=== PATIENT | male | born 1950 | race Two or more races ===

== ENCOUNTER 2019-02-26 23:04 | Emergency (ER) | payer OTHER ==
[~2019-02-26] VITALS: Ht 172.7 cm; Wt 96.2 kg
[2019-02-27 03:01] LABS: Basophils # (auto) 0 uL; Basophils % (auto) 0.1 % (0.0-2.0); Eosinophils # (auto) 0 uL; Hematocrit 44.4 % (41.0-53.0); Hemoglobin 15.6 g/dL (13.5-17.5); Lymphocytes # (auto) 1.1 uL; Mean Corpuscular Hemoglobin 30.1 pg (28.0-32.0); Mean Corpuscular Hgb Conc. 35.2 g/dL (32.0-36.0); Mean Corpuscular Volume 85.6 fL (80.0-100.0); Monocytes # (auto) 1.8 uL; Monocytes % (auto) 9.4 % (0.0-12.0); Neutrophils # (auto) 16.1 uL; Neutrophils % (auto) 84.5 % (37.0-80.0); Nucleated Red Blood Cells % 0.1 %; Platelet Count (auto) 217 10^3/uL (140-450); Red Blood Cells 5.19 10^6/uL (4.5-5.90); Red Cell Distribution Width 15.2 % (11.8-14.3)
[2019-02-27 03:02] LABS: Albumin 3.8 g/dL (3.4-5.0); BUN/Creatinine Ratio 21.4; Bilirubin, Total 4.6 mg/dL (0.2-1.0); Calcium 8.6 mg/dL (8.5-10.1); Potassium 4.1 mmol/L (3.5-5.1); Total Protein 7.4 g/dL (6.4-8.2)
[2019-02-27] MEDS ORDERED: PIPERACILLIN-TAZOB 3.375GM 100 ML IV ONE (03:30)
[2019-02-27] MEDS ORDERED: SODIUM CHLORIDE 0.9% 1,000 ML IV ONE (03:30)
[2019-02-27] MEDS ORDERED: IOHEXOL 350 MG/ML 100ML IJ ONE (03:39)
[2019-02-27 04:40] LABS: Urine Bacteria FEW /hpf (None Seen); Urine Blood 2+ /uL (Negative); Urine Hyaline Cast FEW /lpf (0 - 2); Urine Mucus FEW (None Seen); Urine Specific Gravity 1.029 (1.001-1.035); Urine WBC 2 /hpf (0 - 3)
[2019-02-27] MEDS ORDERED: LACTATED RINGER'S 1,000 ML IV ONE ×2 (07:00)
[2019-02-27 07:29] LABS: Lactic Acid w/Reflex 3.8 mmol/L (0.4-2.0)
[2019-02-27 08:19] VITALS: BP 141/82
== END 2019-02-27 08:37 | disposition short-term general hospital (02) ==
LOC: EEVIPCON 23:06 → ER 23:06
DX: K85.90 Acute pancreatitis without necrosis or infection, unspecified (principal); R94.5 Abnormal results of liver function studies; E86.0 Dehydration; K59.00 Constipation, unspecified; I10 Essential (primary) hypertension
CPT/HCPCS: 36415; 71260; 74022; 74177; 80053; 81001; 83605; 85025; 93005; 96365; 96366; 99285; J2543; J7120; Q9967; 96361

== ENCOUNTER 2019-03-27 15:09 | Emergency (ER) | payer OTHER ==
[~2019-03-27] VITALS: Ht 172.7 cm; Wt 97.5 kg
[2019-03-27 17:45] LABS: Albumin 2.1 g/dL (3.4-5.0); BUN/Creatinine Ratio 14.9; Calcium 7.8 mg/dL (8.5-10.1); Potassium 4.1 mmol/L (3.5-5.1)
[2019-03-27] MEDS ORDERED: SODIUM CHLORIDE 0.9% 1,000 ML IVB ONE (17:47)
[2019-03-27 17:48] LABS: Bilirubin, Total 1.6 mg/dL (0.2-1.0); Total Protein 6.5 g/dL (6.4-8.2)
[2019-03-27 17:54] LABS: Basophils # (auto) 0 uL; Eosinophils # (auto) 0 uL; Hematocrit 30.3 % (41.0-53.0); Hemoglobin 10.5 g/dL (13.5-17.5); Lymphocytes # (auto) 0.5 uL; Lymphocytes % (auto) 3.4 % (10.0-50.0); Mean Corpuscular Hemoglobin 28.9 pg (28.0-32.0); Mean Corpuscular Hgb Conc. 34.8 g/dL (32.0-36.0); Monocytes # (auto) 0.3 uL; Monocytes % (auto) 1.7 % (0.0-12.0); Neutrophils # (auto) 15.2 uL; Neutrophils % (auto) 94.9 % (37.0-80.0); Platelet Count (auto) 333 10^3/uL (140-450); Red Blood Cells 3.65 10^6/uL (4.5-5.90); Red Cell Distribution Width 15.7 % (11.8-14.3)
[2019-03-27 18:46] LABS: Lipase 1066 U/L (73-393)
[2019-03-27] MEDS ORDERED: SODIUM CHLORIDE 0.9% 1,000 ML IV ONE ×2 (19:00→22:30)
[2019-03-27] MEDS ORDERED: ONDANSETRON HCL 4 MG/2 ML VIAL IV ONE (19:00)
[2019-03-27] MEDS ORDERED: MORPHINE SULF INJ 2 MG/ML SYRINGE 1ML IV ONE (19:00)
[2019-03-27 19:06] LABS: Amylase 664 U/L (25-115)
[2019-03-27] MEDS ORDERED: cefTRIAXone 1GM/50ML D5W 50 ML IV ONE (20:15)
[2019-03-27 22:23] VITALS: BP 84/53
[2019-04-22] MEDS ORDERED: TAMS0.4C36 PO (23:17)
[2019-04-22] MEDS ORDERED: ENO40SY SUBCUT (23:17)
[2019-04-22] MEDS ORDERED: METR500T14 PO (23:17)
[2019-04-22] MEDS ORDERED: FURO20TA3 PO (23:17)
== END 2019-03-27 22:40 | disposition short-term general hospital (02) ==
LOC: EDUNIT# 15:09 → EDBD 15:09 → ER 15:12 → EEVIPCON 15:12 → ER 22:40
DX: K85.92 Acute pancreatitis with infected necrosis, unspecified (principal); K80.20 Calculus of gallbladder without cholecystitis without obstruction; K86.89 Other specified diseases of pancreas; I10 Essential (primary) hypertension; K21.9 Gastro-esophageal reflux disease without esophagitis
CPT/HCPCS: 36415; 71045; 74176; 80053; 82150; 83690; 83735; 85025; 94761; 96365; 96375; 99291; J0696; J2270; J2405; J7030

== ENCOUNTER 2019-05-21 11:38 | Inpatient (IN) | payer OTHER ==
[~2019-05-21] VITALS: Ht 172.7 cm; Wt 94.7 kg
[~2019-05-21 11:38] MED LIST: FURO20TA3 PO; TAMS0.4C36 PO
[2019-05-21 12:46] LABS: Basophils # (auto) 0 uL; Basophils % (auto) 0.6 % (0.0-2.0); Eosinophils # (auto) 0 uL; Eosinophils % (auto) 0.7 % (0.0-7.0); Hemoglobin 7.7 g/dL (13.5-17.5); Nucleated Red Blood Cells % 0.1 %
[2019-05-21 12:47] LABS: Hematocrit 23.8 % (41.0-53.0); Lymphocytes % (auto) 15.6 % (10.0-50.0); Mean Corpuscular Hemoglobin 27.4 pg (28.0-32.0); Mean Corpuscular Hgb Conc. 32.5 g/dL (32.0-36.0); Mean Corpuscular Volume 84.3 fL (80.0-100.0); Monocytes # (auto) 0.7 uL; Monocytes % (auto) 9.9 % (0.0-12.0); Neutrophils # (auto) 4.8 uL; Neutrophils % (auto) 73.2 % (37.0-80.0); Platelet Count (auto) 222 10^3/uL (140-450); Red Blood Cells 2.82 10^6/uL (4.5-5.90); White Blood Cell 6.6 10^3/uL (4.4-10.8)
[2019-05-21 13:00] LABS: Albumin 1.6 g/dL (3.4-5.0); Anion Gap 7 (5-15); Blood Urea Nitrogen 11 mg/dL (7-18); Calcium 7.2 mg/dL (8.5-10.1); Carbon Dioxide 27 mmol/L (21-32); Chloride 105 mmol/L (98-107); Glucose 106 mg/dL (74-106); Magnesium 1.8 mg/dL (1.6-2.6); Potassium 3.8 mmol/L (3.5-5.1); Sodium 139 mmol/L (136-145)
[2019-05-21 13:07] LABS: Alanine Aminotransferase 11 U/L (16-61); Alkaline Phosphatase 81 U/L (45-117); Aspartate Aminotransferase 26 U/L (15-37); Bilirubin, Total 0.9 mg/dL (0.2-1.0); GFR African American 213 mL/min; GFR Non-African American 176 mL/min
[2019-05-21] MEDS ORDERED: FUROSEMIDE 40 MG/4 ML VIAL IV ONE (14:00)
[2019-05-21 14:03] LABS: Urine WBC None Seen /hpf (0 - 3)
[2019-05-21 14:33] LABS: Urine Amorphous Crystal FEW /hpf (None Seen); Urine Bacteria NONE SEEN /hpf (None Seen); Urine Blood Negative /uL (Negative); Urine Mucus MODERATE (None Seen); Urine Specific Gravity 1.025 (1.001-1.035)
[2019-05-21] MEDS ORDERED: NITROGLYCERIN 0.4 MG SL TAB SL PRN (15:00)
[2019-05-21] MEDS ORDERED: MORPHINE SULF INJ 2 MG/ML SYRINGE 1ML IV PRN (15:00)
[2019-05-21] MEDS: ENOXAPARIN SOD 40 MG/0.4 ML SYRINGE SC SCH (15:57)
[2019-05-21] MEDS: SOD CHL 0.45% 1,000 ML IV SCH (15:57)
[2019-05-21] MEDS: PANTOPRAZOLE 40 MG TAB PO SCH (15:57)
[2019-05-21 18:00] VITALS: BP 138/76
[2019-05-21] MEDS: TAMSULOSIN HYDROCHLORIDE 0.4 MG CAP PO SCH (18:00)
[2019-05-21] MEDS ORDERED: HYDROcodone-ACET 10/325MG TAB PO PRN (18:00)
[2019-05-21 22:00] VITALS: BP 145/78
[2019-05-22] MEDS: SOD CHL 0.45% 1,000 ML IV SCH ×3 (01:49→11:00)
[2019-05-22 06:24] VITALS: BP 135/89
[2019-05-22 09:00] VITALS: BP 119/71
[2019-05-22] MEDS ORDERED: FUROSEMIDE 20 MG TAB PO SCH (10:00)
[2019-05-22] MEDS: ENOXAPARIN SOD 40 MG/0.4 ML SYRINGE SC SCH (10:17)
[2019-05-22] MEDS ORDERED: POTASSIUM CHL 20 Meq TABLET PO ONE (12:00)
[2019-05-22] MEDS ORDERED: FUROSEMIDE 20 MG/2 ML VIAL IV ONE (12:00)
[2019-05-22] MEDS: PANTOPRAZOLE 40 MG TAB PO SCH (12:36)
[2019-05-22 13:00] VITALS: BP 140/82
[2019-05-22 17:00] VITALS: BP 134/84
[2019-05-22] MEDS: TAMSULOSIN HYDROCHLORIDE 0.4 MG CAP PO SCH (18:24)
[2019-05-22] MEDS: FUROSEMIDE 40 MG TAB PO SCH (18:25)
[2019-05-22] MEDS: POTASSIUM CHL 20 Meq TABLET PO SCH (20:38)
[2019-05-22 21:50] VITALS: BP 124/78
[2019-05-23 05:24] VITALS: BP 130/75
[2019-05-23] MEDS: FUROSEMIDE 40 MG TAB PO SCH ×2 (06:20→18:40)
[2019-05-23 09:00] VITALS: BP 125/74
[2019-05-23 09:14] LABS: BUN/Creatinine Ratio 12.8; Calcium 7.3 mg/dL (8.5-10.1); Potassium 3.1 mmol/L (3.5-5.1)
[2019-05-23] MEDS: PANTOPRAZOLE 40 MG TAB PO SCH (11:12)
[2019-05-23] MEDS: POTASSIUM CHL 20 Meq TABLET PO SCH ×2 (11:12→21:27)
[2019-05-23] MEDS: ENOXAPARIN SOD 40 MG/0.4 ML SYRINGE SC SCH (11:13)
[2019-05-23 13:00] VITALS: BP 132/78
[2019-05-23 17:00] VITALS: BP 120/69
[2019-05-23] MEDS: TAMSULOSIN HYDROCHLORIDE 0.4 MG CAP PO SCH (18:40)
[2019-05-23 22:00] VITALS: BP 126/78
[2019-05-24 05:00] VITALS: BP 126/72
[2019-05-24] MEDS: FUROSEMIDE 40 MG TAB PO SCH ×2 (06:03→17:39)
[2019-05-24 09:00] VITALS: BP 115/70
[2019-05-24] MEDS: ENOXAPARIN SOD 40 MG/0.4 ML SYRINGE SC SCH (09:58)
[2019-05-24] MEDS: POTASSIUM CHL 20 Meq TABLET PO SCH ×2 (09:58→21:23)
[2019-05-24] MEDS: PANTOPRAZOLE 40 MG TAB PO SCH (09:58)
[2019-05-24 13:00] VITALS: BP 123/68
[2019-05-24] MEDS ORDERED: POTASSIUM CHL 20 Meq TABLET PO ONE (14:00)
[2019-05-24 17:37] VITALS: BP 128/75
[2019-05-24] MEDS: TAMSULOSIN HYDROCHLORIDE 0.4 MG CAP PO SCH (17:41)
[2019-05-24 21:12] VITALS: BP 125/72
[2019-05-25 05:17] VITALS: BP 110/71
[2019-05-25] MEDS: FUROSEMIDE 40 MG TAB PO SCH ×3 (06:30→21:33)
[2019-05-25 06:43] LABS: Chloride 77 mmol/L (98-107); Potassium 3.9 mmol/L (3.5-5.1); Sodium 147 mmol/L (136-145)
[2019-05-25 06:47] LABS: Anion Gap 52 (5-15); BUN/Creatinine Ratio 12.1; Blood Urea Nitrogen 4 mg/dL (7-18); Calcium 6.1 mg/dL (8.5-10.1); Carbon Dioxide 18 mmol/L (21-32); GFR African American 345 mL/min; GFR Non-African American 285 mL/min; Glucose 82 mg/dL (74-106)
[2019-05-25 08:47] VITALS: BP 129/72
[2019-05-25] MEDS: POTASSIUM CHL 20 Meq TABLET PO SCH ×3 (10:21→21:32)
[2019-05-25] MEDS: PANTOPRAZOLE 40 MG TAB PO SCH (10:22)
[2019-05-25] MEDS: ENOXAPARIN SOD 40 MG/0.4 ML SYRINGE SC SCH (10:22)
[2019-05-25 13:10] VITALS: BP 123/67
[2019-05-25 17:05] VITALS: BP 118/74
[2019-05-25] MEDS: TAMSULOSIN HYDROCHLORIDE 0.4 MG CAP PO SCH (18:00)
[2019-05-25 21:59] VITALS: BP 115/73
[2019-05-26 04:30] VITALS: BP 124/74
[2019-05-26] MEDS: POTASSIUM CHL 20 Meq TABLET PO SCH ×3 (06:28→22:11)
[2019-05-26] MEDS: FUROSEMIDE 40 MG TAB PO SCH ×3 (06:29→22:11)
[2019-05-26 07:33] LABS: BUN/Creatinine Ratio 11.3; Calcium 7.7 mg/dL (8.5-10.1); Potassium 3.6 mmol/L (3.5-5.1)
[2019-05-26] MEDS: ENOXAPARIN SOD 40 MG/0.4 ML SYRINGE SC SCH (09:15)
[2019-05-26] MEDS: PANTOPRAZOLE 40 MG TAB PO SCH (09:15)
[2019-05-26 13:00] VITALS: BP 130/75
[2019-05-26 16:52] VITALS: BP 158/85
[2019-05-26] MEDS: TAMSULOSIN HYDROCHLORIDE 0.4 MG CAP PO SCH (18:29)
[2019-05-26 22:00] VITALS: BP 121/68
[2019-05-27 05:53] VITALS: BP 114/64
[2019-05-27] MEDS: FUROSEMIDE 40 MG TAB PO SCH ×3 (06:03→21:51)
[2019-05-27] MEDS: POTASSIUM CHL 20 Meq TABLET PO SCH ×3 (06:03→21:51)
[2019-05-27 09:00] VITALS: BP 123/66
[2019-05-27] MEDS: PANTOPRAZOLE 40 MG TAB PO SCH (09:51)
[2019-05-27] MEDS: ENOXAPARIN SOD 40 MG/0.4 ML SYRINGE SC SCH (09:51)
[2019-05-27 13:00] VITALS: BP 112/74
[2019-05-27 17:00] VITALS: BP 102/59
[2019-05-27] MEDS: TAMSULOSIN HYDROCHLORIDE 0.4 MG CAP PO SCH (18:21)
[2019-05-27 22:00] VITALS: BP 104/69
[2019-05-28 05:00] VITALS: BP 107/68
[2019-05-28] MEDS: POTASSIUM CHL 20 Meq TABLET PO SCH ×3 (06:10→21:39)
[2019-05-28] MEDS: FUROSEMIDE 40 MG TAB PO SCH ×3 (06:11→21:40)
[2019-05-28 09:00] VITALS: BP 159/76
[2019-05-28] MEDS: PANTOPRAZOLE 40 MG TAB PO SCH (10:56)
[2019-05-28] MEDS: ENOXAPARIN SOD 40 MG/0.4 ML SYRINGE SC SCH (10:56)
[2019-05-28 13:00] VITALS: BP 126/77
[2019-05-28] MEDS: TAMSULOSIN HYDROCHLORIDE 0.4 MG CAP PO SCH (18:00)
[2019-05-28 18:32] VITALS: BP 117/71
[2019-05-28 21:00] VITALS: BP 107/68
[2019-05-29 05:00] VITALS: BP 123/69
[2019-05-29] MEDS: FUROSEMIDE 40 MG TAB PO SCH ×3 (05:10→22:22)
[2019-05-29] MEDS: POTASSIUM CHL 20 Meq TABLET PO SCH ×3 (05:10→22:22)
[2019-05-29 09:00] VITALS: BP 123/70
[2019-05-29] MEDS: ENOXAPARIN SOD 40 MG/0.4 ML SYRINGE SC SCH (09:40)
[2019-05-29] MEDS: PANTOPRAZOLE 40 MG TAB PO SCH (09:41)
[2019-05-29 13:00] VITALS: BP 119/70
[2019-05-29 17:21] VITALS: BP 120/68
[2019-05-29] MEDS: TAMSULOSIN HYDROCHLORIDE 0.4 MG CAP PO SCH (17:35)
[2019-05-29 22:00] VITALS: BP 112/64
[2019-05-30 05:18] VITALS: BP 116/66
[2019-05-30] MEDS: POTASSIUM CHL 20 Meq TABLET PO SCH ×3 (05:45→22:40)
[2019-05-30] MEDS: FUROSEMIDE 40 MG TAB PO SCH ×3 (05:46→22:40)
[2019-05-30 09:00] VITALS: BP 138/82
[2019-05-30] MEDS: PANTOPRAZOLE 40 MG TAB PO SCH (09:33)
[2019-05-30] MEDS: ENOXAPARIN SOD 40 MG/0.4 ML SYRINGE SC SCH (09:34)
[2019-05-30 13:00] VITALS: BP 122/72
[2019-05-30 17:00] VITALS: BP 123/70
[2019-05-30] MEDS: TAMSULOSIN HYDROCHLORIDE 0.4 MG CAP PO SCH (18:05)
[2019-05-30 20:00] VITALS: BP 122/72
[2019-05-30 22:22] VITALS: BP 113/71
[2019-05-31 05:14] VITALS: BP 110/69
[2019-05-31] MEDS: POTASSIUM CHL 20 Meq TABLET PO SCH ×3 (05:39→22:11)
[2019-05-31] MEDS: FUROSEMIDE 40 MG TAB PO SCH ×3 (05:39→22:11)
[2019-05-31 09:00] VITALS: BP 120/71
[2019-05-31] MEDS: PANTOPRAZOLE 40 MG TAB PO SCH (09:20)
[2019-05-31] MEDS: ENOXAPARIN SOD 40 MG/0.4 ML SYRINGE SC SCH (09:20)
[2019-05-31 13:00] VITALS: BP 118/70
[2019-05-31 17:00] VITALS: BP 123/69
[2019-05-31 20:00] VITALS: BP 120/71
[2019-05-31] MEDS: TAMSULOSIN HYDROCHLORIDE 0.4 MG CAP PO SCH (20:37)
[2019-05-31 23:10] VITALS: BP 115/69
[2019-06-01 05:08] VITALS: BP 117/68
[2019-06-01] MEDS: POTASSIUM CHL 20 Meq TABLET PO SCH ×3 (05:34→22:23)
[2019-06-01] MEDS: FUROSEMIDE 40 MG TAB PO SCH ×3 (05:35→22:24)
[2019-06-01 05:56] LABS: Basophils # (auto) 0 uL; Basophils % (auto) 0.6 % (0.0-2.0); Eosinophils # (auto) 0.1 uL; Eosinophils % (auto) 2.9 % (0.0-7.0); Hematocrit 26.8 % (41.0-53.0); Hemoglobin 8.7 g/dL (13.5-17.5); Lymphocytes # (auto) 0.9 uL; Lymphocytes % (auto) 20.6 % (10.0-50.0); Mean Corpuscular Hemoglobin 27.5 pg (28.0-32.0); Mean Corpuscular Hgb Conc. 32.5 g/dL (32.0-36.0); Mean Corpuscular Volume 84.6 fL (80.0-100.0); Monocytes # (auto) 0.5 uL; Monocytes % (auto) 11.2 % (0.0-12.0); Neutrophils # (auto) 2.8 uL; Neutrophils % (auto) 64.7 % (37.0-80.0); Platelet Count (auto) 248 10^3/uL (140-450); Red Blood Cells 3.17 10^6/uL (4.5-5.90); Red Cell Distribution Width 19.9 % (11.8-14.3); White Blood Cell 4.4 10^3/uL (4.4-10.8)
[2019-06-01 06:20] LABS: Potassium 3.1 mmol/L (3.5-5.1)
[2019-06-01 06:27] LABS: BUN/Creatinine Ratio 14.5; Total Protein 7.4 g/dL (6.4-8.2)
[2019-06-01 09:00] VITALS: BP 114/71
[2019-06-01] MEDS: PANTOPRAZOLE 40 MG TAB PO SCH (09:02)
[2019-06-01] MEDS: ENOXAPARIN SOD 40 MG/0.4 ML SYRINGE SC SCH (09:05)
[2019-06-01] MEDS ORDERED: POTASSIUM CHL 20 Meq TABLET PO ONE (11:45)
[2019-06-01 13:00] VITALS: BP 122/71
[2019-06-01 17:00] VITALS: BP 123/71
[2019-06-01] MEDS: TAMSULOSIN HYDROCHLORIDE 0.4 MG CAP PO SCH (17:52)
[2019-06-01 22:00] VITALS: BP 113/62
[2019-06-02 06:00] VITALS: BP 118/70
[2019-06-02] MEDS: POTASSIUM CHL 20 Meq TABLET PO SCH ×3 (06:15→22:00)
[2019-06-02] MEDS: FUROSEMIDE 40 MG TAB PO SCH ×3 (06:15→22:00)
[2019-06-02 09:00] VITALS: BP 113/67
[2019-06-02] MEDS ORDERED: POTASSIUM CHL 20 Meq TABLET PO ONE (09:15)
[2019-06-02] MEDS: PANTOPRAZOLE 40 MG TAB PO SCH (09:47)
[2019-06-02] MEDS: ENOXAPARIN SOD 40 MG/0.4 ML SYRINGE SC SCH (09:48)
[2019-06-02 12:05] LABS: BUN/Creatinine Ratio 13.9; Calcium 7.8 mg/dL (8.5-10.1); Potassium 3.4 mmol/L (3.5-5.1)
[2019-06-02 13:00] VITALS: BP 125/74
[2019-06-02 17:00] VITALS: BP 110/70
[2019-06-02] MEDS: TAMSULOSIN HYDROCHLORIDE 0.4 MG CAP PO SCH (18:00)
[2019-06-02 22:00] VITALS: BP 120/76
[2019-06-03 05:47] VITALS: BP 101/65
[2019-06-03] MEDS: FUROSEMIDE 40 MG TAB PO SCH ×3 (06:32→22:04)
[2019-06-03] MEDS: POTASSIUM CHL 20 Meq TABLET PO SCH ×3 (06:32→22:04)
[2019-06-03 09:00] VITALS: BP 115/70
[2019-06-03] MEDS: ENOXAPARIN SOD 40 MG/0.4 ML SYRINGE SC SCH (09:54)
[2019-06-03] MEDS: PANTOPRAZOLE 40 MG TAB PO SCH (09:54)
[2019-06-03 13:00] VITALS: BP 105/70
[2019-06-03 17:00] VITALS: BP 115/64
[2019-06-03] MEDS: TAMSULOSIN HYDROCHLORIDE 0.4 MG CAP PO SCH ×2 (18:00→18:37)
[2019-06-03 22:00] VITALS: BP 115/72
[2019-06-04 05:00] VITALS: BP 114/69
[2019-06-04] MEDS: POTASSIUM CHL 20 Meq TABLET PO SCH ×3 (05:48→21:56)
[2019-06-04] MEDS: FUROSEMIDE 40 MG TAB PO SCH ×3 (05:48→21:56)
[2019-06-04 09:00] VITALS: BP 137/79
[2019-06-04] MEDS: PANTOPRAZOLE 40 MG TAB PO SCH (11:01)
[2019-06-04 13:00] VITALS: BP 135/76
[2019-06-04 17:00] VITALS: BP 107/63
[2019-06-04] MEDS: TAMSULOSIN HYDROCHLORIDE 0.4 MG CAP PO SCH (18:00)
[2019-06-04 21:37] VITALS: BP 106/59
[2019-06-05 05:08] VITALS: BP 111/62
[2019-06-05] MEDS: POTASSIUM CHL 20 Meq TABLET PO SCH ×3 (05:46→21:43)
[2019-06-05] MEDS: FUROSEMIDE 40 MG TAB PO SCH ×3 (05:46→21:44)
[2019-06-05 09:00] VITALS: BP 107/62
[2019-06-05] MEDS: PANTOPRAZOLE 40 MG TAB PO SCH (09:46)
[2019-06-05 13:00] VITALS: BP 108/62
[2019-06-05 17:00] VITALS: BP 114/60
[2019-06-05] MEDS: TAMSULOSIN HYDROCHLORIDE 0.4 MG CAP PO SCH (18:00)
[2019-06-05 20:00] VITALS: BP 125/71
[2019-06-05 21:38] VITALS: BP 125/71
[2019-06-06 05:28] VITALS: BP 108/67
[2019-06-06] MEDS: FUROSEMIDE 40 MG TAB PO SCH ×3 (05:39→21:29)
[2019-06-06] MEDS: POTASSIUM CHL 20 Meq TABLET PO SCH ×3 (05:39→21:28)
[2019-06-06 09:00] VITALS: BP 118/71
[2019-06-06] MEDS: PANTOPRAZOLE 40 MG TAB PO SCH ×2 (09:35→21:29)
[2019-06-06 13:00] VITALS: BP 137/83
[2019-06-06 17:00] VITALS: BP 113/62
[2019-06-06] MEDS: TAMSULOSIN HYDROCHLORIDE 0.4 MG CAP PO SCH (18:00)
[2019-06-06] MEDS: HYDROcodone-ACET 10/325MG TAB PO PRN (20:14)
[2019-06-06 21:57] VITALS: BP 125/65
[2019-06-07 05:26] VITALS: BP 100/58
[2019-06-07] MEDS: FUROSEMIDE 40 MG TAB PO SCH ×3 (05:51→21:41)
[2019-06-07] MEDS: POTASSIUM CHL 20 Meq TABLET PO SCH ×3 (05:51→21:41)
[2019-06-07 09:00] VITALS: BP 102/61
[2019-06-07] MEDS: PANTOPRAZOLE 40 MG TAB PO SCH ×2 (09:40→21:41)
[2019-06-07 13:00] VITALS: BP 122/68
[2019-06-07 17:00] VITALS: BP 123/58
[2019-06-07] MEDS: TAMSULOSIN HYDROCHLORIDE 0.4 MG CAP PO SCH (17:58)
[2019-06-07] MEDS: HYDROcodone-ACET 10/325MG TAB PO PRN ×2 (17:58→22:08)
[2019-06-07] MEDS: ONDANSETRON HCL 4 MG/2 ML VIAL IV PRN (18:45)
[2019-06-07 22:00] VITALS: BP 111/62
[2019-06-08 05:00] VITALS: BP 115/59
[2019-06-08] MEDS: POTASSIUM CHL 20 Meq TABLET PO SCH ×3 (05:33→21:42)
[2019-06-08] MEDS: FUROSEMIDE 40 MG TAB PO SCH ×3 (05:37→21:42)
[2019-06-08 09:00] VITALS: BP 124/66
[2019-06-08] MEDS: PANTOPRAZOLE 40 MG TAB PO SCH ×2 (11:03→21:42)
[2019-06-08 13:00] VITALS: BP 113/59
[2019-06-08 16:51] VITALS: BP 116/60
[2019-06-08] MEDS: TAMSULOSIN HYDROCHLORIDE 0.4 MG CAP PO SCH (18:32)
[2019-06-08 21:26] VITALS: BP 110/63
[2019-06-09 04:59] VITALS: BP 104/64
[2019-06-09] MEDS: POTASSIUM CHL 20 Meq TABLET PO SCH ×3 (06:30→22:30)
[2019-06-09] MEDS: FUROSEMIDE 40 MG TAB PO SCH ×3 (06:30→22:30)
[2019-06-09 09:00] VITALS: BP 104/61
[2019-06-09] MEDS: PANTOPRAZOLE 40 MG TAB PO SCH ×2 (10:00→22:30)
[2019-06-09 13:00] VITALS: BP 101/69
[2019-06-09 17:15] VITALS: BP 107/66
[2019-06-09] MEDS: TAMSULOSIN HYDROCHLORIDE 0.4 MG CAP PO SCH (18:00)
[2019-06-09 22:23] VITALS: BP 103/59
[2019-06-10 05:12] VITALS: BP 113/57
[2019-06-10] MEDS: FUROSEMIDE 40 MG TAB PO SCH ×3 (06:00→21:40)
[2019-06-10] MEDS: POTASSIUM CHL 20 Meq TABLET PO SCH ×3 (06:30→21:39)
[2019-06-10 06:37] LABS: Basophils # (auto) 0 uL; Basophils % (auto) 0.4 % (0.0-2.0); Eosinophils # (auto) 0 uL; Eosinophils % (auto) 0.7 % (0.0-7.0); Hematocrit 25.7 % (41.0-53.0); Hemoglobin 8.5 g/dL (13.5-17.5); Lymphocytes # (auto) 0.9 uL; Lymphocytes % (auto) 14.5 % (10.0-50.0); Mean Corpuscular Hemoglobin 27.7 pg (28.0-32.0); Mean Corpuscular Hgb Conc. 32.9 g/dL (32.0-36.0); Monocytes # (auto) 0.7 uL; Monocytes % (auto) 11.2 % (0.0-12.0); Neutrophils # (auto) 4.7 uL; Neutrophils % (auto) 73.2 % (37.0-80.0); Platelet Count (auto) 277 10^3/uL (140-450); Red Blood Cells 3.06 10^6/uL (4.5-5.90); Red Cell Distribution Width 19.2 % (11.8-14.3); White Blood Cell 6.4 10^3/uL (4.4-10.8)
[2019-06-10 06:53] LABS: Calcium 8.6 mg/dL (8.5-10.1); Potassium 3.5 mmol/L (3.5-5.1)
[2019-06-10 06:58] LABS: BUN/Creatinine Ratio 21.3; Bilirubin, Total 1.6 mg/dL (0.2-1.0); Total Protein 7.7 g/dL (6.4-8.2)
[2019-06-10 09:00] VITALS: BP 102/67
[2019-06-10] MEDS: PANTOPRAZOLE 40 MG TAB PO SCH ×2 (10:42→21:40)
[2019-06-10] MEDS: ENOXAPARIN SOD 40 MG/0.4 ML SYRINGE SC SCH (10:42)
[2019-06-10 13:00] VITALS: BP 101/64
[2019-06-10 16:57] VITALS: BP 123/67
[2019-06-10] MEDS: TAMSULOSIN HYDROCHLORIDE 0.4 MG CAP PO SCH (17:50)
[2019-06-10] MEDS: HYDROcodone-ACET 10/325MG TAB PO PRN (20:16)
[2019-06-10 22:09] VITALS: BP 121/67
[2019-06-10] MEDS: ONDANSETRON HCL 4 MG/2 ML VIAL IV PRN (22:26)
[2019-06-11 05:06] VITALS: BP 101/56
[2019-06-11] MEDS: POTASSIUM CHL 20 Meq TABLET PO SCH ×3 (05:44→21:48)
[2019-06-11] MEDS: FUROSEMIDE 40 MG TAB PO SCH ×3 (05:44→21:48)
[2019-06-11] MEDS: ENOXAPARIN SOD 40 MG/0.4 ML SYRINGE SC SCH (10:24)
[2019-06-11] MEDS: PANTOPRAZOLE 40 MG TAB PO SCH ×2 (10:24→21:48)
[2019-06-11 13:00] VITALS: BP 103/59
[2019-06-11] MEDS ORDERED: ACETAMINOPHEN 325 MG TAB PO PRN (14:30)
[2019-06-11 17:00] VITALS: BP 100/58
[2019-06-11 22:00] VITALS: BP 94/54
[2019-06-12 05:18] VITALS: BP 110/58
[2019-06-12] MEDS: POTASSIUM CHL 20 Meq TABLET PO SCH ×3 (06:16→21:45)
[2019-06-12] MEDS: FUROSEMIDE 40 MG TAB PO SCH ×3 (06:17→21:46)
[2019-06-12 09:00] VITALS: BP 102/59
[2019-06-12] MEDS: PANTOPRAZOLE 40 MG TAB PO SCH ×2 (11:04→21:46)
[2019-06-12] MEDS: ENOXAPARIN SOD 40 MG/0.4 ML SYRINGE SC SCH (11:05)
[2019-06-12] MEDS: TAMSULOSIN HYDROCHLORIDE 0.4 MG CAP PO SCH ×2 (11:49→17:33)
[2019-06-12 13:00] VITALS: BP 93/58
[2019-06-12 17:07] VITALS: BP 107/68
[2019-06-12 22:00] VITALS: BP 102/59
[2019-06-13] VITALS (7 sets, daily range): BP systolic 98–143; BP diastolic 57–96
[2019-06-13] MEDS: POTASSIUM CHL 20 Meq TABLET PO SCH ×3 (05:49→22:14)
[2019-06-13] MEDS: FUROSEMIDE 40 MG TAB PO SCH ×3 (05:49→22:15)
[2019-06-13] MEDS: PANTOPRAZOLE 40 MG TAB PO SCH ×2 (10:13→22:15)
[2019-06-13] MEDS: ENOXAPARIN SOD 40 MG/0.4 ML SYRINGE SC SCH (10:13)
[2019-06-13] MEDS: TAMSULOSIN HYDROCHLORIDE 0.4 MG CAP PO SCH (18:17)
[2019-06-14 05:33] VITALS: BP 102/63
[2019-06-14] MEDS: POTASSIUM CHL 20 Meq TABLET PO SCH ×3 (05:58→22:02)
[2019-06-14] MEDS: FUROSEMIDE 40 MG TAB PO SCH ×3 (05:59→22:02)
[2019-06-14 08:00] VITALS: BP 155/83
[2019-06-14 09:00] VITALS: BP 155/83
[2019-06-14] MEDS: PANTOPRAZOLE 40 MG TAB PO SCH ×2 (10:12→22:03)
[2019-06-14] MEDS: ENOXAPARIN SOD 40 MG/0.4 ML SYRINGE SC SCH (10:13)
[2019-06-14 13:00] VITALS: BP 114/64
[2019-06-14 17:00] VITALS: BP 110/65
[2019-06-14] MEDS: TAMSULOSIN HYDROCHLORIDE 0.4 MG CAP PO SCH (19:00)
[2019-06-14 22:47] VITALS: BP 118/62
[2019-06-15] VITALS (7 sets, daily range): BP systolic 101–150; BP diastolic 61–72
[2019-06-15] MEDS: POTASSIUM CHL 20 Meq TABLET PO SCH ×3 (06:42→21:45)
[2019-06-15] MEDS: FUROSEMIDE 40 MG TAB PO SCH ×3 (06:42→21:51)
[2019-06-15] MEDS: ENOXAPARIN SOD 40 MG/0.4 ML SYRINGE SC SCH (09:34)
[2019-06-15] MEDS: PANTOPRAZOLE 40 MG TAB PO SCH ×2 (09:34→21:46)
[2019-06-15] MEDS: TAMSULOSIN HYDROCHLORIDE 0.4 MG CAP PO SCH (17:30)
[2019-06-16 05:00] VITALS: BP 106/63
[2019-06-16] MEDS: POTASSIUM CHL 20 Meq TABLET PO SCH ×3 (05:57→20:36)
[2019-06-16] MEDS: FUROSEMIDE 40 MG TAB PO SCH ×3 (05:58→20:36)
[2019-06-16 08:00] VITALS: BP 150/72
[2019-06-16 09:00] VITALS: BP 103/58
[2019-06-16] MEDS: ENOXAPARIN SOD 40 MG/0.4 ML SYRINGE SC SCH (09:02)
[2019-06-16] MEDS: PANTOPRAZOLE 40 MG TAB PO SCH ×2 (09:02→20:36)
[2019-06-16 13:00] VITALS: BP 128/70
[2019-06-16 17:00] VITALS: BP 101/61
[2019-06-16] MEDS: TAMSULOSIN HYDROCHLORIDE 0.4 MG CAP PO SCH (17:25)
[2019-06-16 21:34] VITALS: BP 101/59
[2019-06-17 05:08] VITALS: BP 99/65
[2019-06-17] MEDS: POTASSIUM CHL 20 Meq TABLET PO SCH ×2 (05:40→14:20)
[2019-06-17] MEDS: FUROSEMIDE 40 MG TAB PO SCH ×2 (05:40→14:00)
[2019-06-17 06:58] LABS: Basophils # (auto) 0 uL; Monocytes # (auto) 0.8 uL; Neutrophils # (auto) 4.8 uL
[2019-06-17 07:00] LABS: Basophils % (auto) 0.4 % (0.0-2.0); Eosinophils # (auto) 0 uL; Eosinophils % (auto) 0.7 % (0.0-7.0); Hemoglobin 8.1 g/dL (13.5-17.5); Lymphocytes # (auto) 1.3 uL; Lymphocytes % (auto) 18.4 % (10.0-50.0); Mean Corpuscular Hemoglobin 27.3 pg (28.0-32.0); Mean Corpuscular Hgb Conc. 32.5 g/dL (32.0-36.0); Mean Corpuscular Volume 83.9 fL (80.0-100.0); Monocytes % (auto) 11.5 % (0.0-12.0); Platelet Count (auto) 347 10^3/uL (140-450); Red Blood Cells 2.98 10^6/uL (4.5-5.90); Red Cell Distribution Width 19.1 % (11.8-14.3); White Blood Cell 6.9 10^3/uL (4.4-10.8)
[2019-06-17 07:05] LABS: Calcium 8.5 mg/dL (8.5-10.1); Potassium 3.3 mmol/L (3.5-5.1)
[2019-06-17 07:11] LABS: Albumin 2.2 g/dL (3.4-5.0); BUN/Creatinine Ratio 18.2; Bilirubin, Total 1.5 mg/dL (0.2-1.0); Total Protein 7.9 g/dL (6.4-8.2)
[2019-06-17 09:00] VITALS: BP 106/70
[2019-06-17] MEDS: ENOXAPARIN SOD 40 MG/0.4 ML SYRINGE SC SCH (09:59)
[2019-06-17] MEDS: PANTOPRAZOLE 40 MG TAB PO SCH (09:59)
[2019-06-17] MEDS ORDERED: TAMSULOSIN HYDROCHLORIDE 0.4 MG CAP PO SCH (12:00)
[2019-06-17 14:15] VITALS: BP 94/58
[2019-06-17] MEDS ORDERED: FURO40TA4 PO (15:07)
[2019-06-17] MEDS ORDERED: POTA-220 PO (15:07)
[2019-06-17 16:09] VITALS: BP 94/58
== END 2019-06-17 17:30 | DRG 438 ==
LOC: ER 11:38 → EEVIPCON 11:38 → EDBD 11:38 → OVERFLOW 11:39 → EAST 18:12
PROVIDERS: ADMIT Internal Medicine; ATTEND Internal Medicine
DX: K85.91 Acute pancreatitis with uninfected necrosis, unspecified (principal); E43 Unspecified severe protein-calorie malnutrition; K86.3 Pseudocyst of pancreas; J90 Pleural effusion, not elsewhere classified; K80.20 Calculus of gallbladder without cholecystitis without obstruction; D64.9 Anemia, unspecified; I10 Essential (primary) hypertension; N40.0 Benign prostatic hyperplasia without lower urinary tract symptoms; K21.9 Gastro-esophageal reflux disease without esophagitis; Z68.31 Body mass index [BMI] 31.0-31.9, adult; Z87.19 Personal history of other diseases of the digestive system
CPT/HCPCS: 36415; 71045; 74176; 80048; 80053; 80061; 81001; 82150; 82962; 83690; 83735; 83880; 84484; 85025; 87081; 93005; 97116; 97163; 97530; 99291; G0378; J2405; J7042

== ENCOUNTER 2019-10-08 14:57 | Inpatient (IN) | payer OTHER ==
[~2019-10-08] VITALS: Ht 167.6 cm; Wt 60.9 kg
[~2019-10-08 14:57] MED LIST changes: -FURO20TA3 PO; +FURO40TA4 PO; +POTA-220 PO; +SPIR25TA88 PO
[2019-10-08 15:46] LABS: Basophils # (auto) 0 10 ^3/uL (0-0.2); Eosinophils # (auto) 0.1 10 ^3/uL (0-0.8); Eosinophils % (auto) 1.7 % (0.0-7.0); Hematocrit 29.7 % (41.0-53.0); Hemoglobin 9.4 g/dL (13.5-17.5); Lymphocytes # (auto) 0.8 10 ^3/uL (0.4-5.4); Lymphocytes % (auto) 26.2 % (10.0-50.0); Mean Corpuscular Hemoglobin 26.2 pg (28.0-32.0); Mean Corpuscular Hgb Conc. 31.6 g/dL (32.0-36.0); Monocytes # (auto) 0.3 10 ^3/uL (0-1.3); Monocytes % (auto) 9.3 % (0.0-12.0); Neutrophils # (auto) 1.9 10 ^3/uL (1.6-8.6); Neutrophils % (auto) 61.8 % (37.0-80.0); Platelet Count (auto) 221 10^3/uL (140-450); Red Blood Cells 3.58 10^6/uL (4.5-5.90); White Blood Cell 3.1 10^3/uL (4.4-10.8)
[2019-10-08 15:47] LABS: Red Cell Distribution Width 21.3 % (11.8-14.3)
[2019-10-08] MEDS ORDERED: AZITHROMYCIN 500MG/ 250ML 250 ML IV ONE (16:00)
[2019-10-08] MEDS ORDERED: cefTRIAXone 1GM/50ML D5W 50 ML IV ONE (16:00)
[2019-10-08 16:02] LABS: INR 1.22 (0.9-1.15); Partial Thromboplastin Time 28.4 sec (23.64-32.05)
[2019-10-08 16:08] LABS: Alanine Aminotransferase 13 U/L (16-61); Albumin 2.2 g/dL (3.4-5.0); Anion Gap 8 (5-15); Aspartate Aminotransferase 25 U/L (15-37); BUN/Creatinine Ratio 12.5; Blood Urea Nitrogen 9 mg/dL (7-18); Carbon Dioxide 25 mmol/L (21-32); Chloride 107 mmol/L (98-107); GFR African American 140 mL/min; GFR Non-African American 115 mL/min; Glucose 101 mg/dL (74-106); Lipase 225 U/L (73-393); Sodium 140 mmol/L (136-145)
[2019-10-08 16:13] LABS: Alkaline Phosphatase 84 U/L (45-117); Bilirubin, Total 1.6 mg/dL (0.2-1.0); Total Protein 7.6 g/dL (6.4-8.2)
[2019-10-08 18:14] VITALS: BP 137/95
[2019-10-08 18:35] VITALS: BP 137/98
[2019-10-08] MEDS: FUROSEMIDE 20 MG/2 ML VIAL IV SCH (19:16)
[2019-10-08] MEDS: POTASSIUM CHL 10 Meq TABLET PO SCH ×2 (19:17→21:26)
[2019-10-08 22:00] VITALS: BP 161/91
[2019-10-08] MEDS ORDERED: FUROSEMIDE 20 MG/2 ML VIAL IV SCH (22:00)
[2019-10-08] MEDS ORDERED: POTASSIUM CHL 10 Meq TABLET PO SCH (22:00)
[2019-10-08 23:14] VITALS: BP 155/74
[2019-10-09 05:00] VITALS: BP 124/70
[2019-10-09] MEDS: FUROSEMIDE 20 MG/2 ML VIAL IV SCH (05:25)
[2019-10-09 06:17] LABS: Potassium 3.1 mmol/L (3.5-5.1)
[2019-10-09 06:24] LABS: Albumin 2.1 g/dL (3.4-5.0); BUN/Creatinine Ratio 13.6; Bilirubin, Total 1.6 mg/dL (0.2-1.0); Calcium 7.7 mg/dL (8.5-10.1); Total Protein 6.9 g/dL (6.4-8.2)
[2019-10-09 08:00] VITALS: BP 135/89
[2019-10-09] MEDS: ENOXAPARIN SOD 40 MG/0.4 ML SYRINGE SC SCH ×2 (10:00→13:24)
[2019-10-09 12:00] VITALS: BP 106/61
[2019-10-09] MEDS ORDERED: POTASSIUM CHL 20 Meq TABLET PO ONE (12:45)
[2019-10-09] MEDS: SPIRONOLACTONE 25 MG TAB PO SCH (13:24)
[2019-10-09] MEDS: POTASSIUM CHL 10 Meq TABLET PO SCH ×2 (13:25→23:01)
[2019-10-09 16:56] VITALS: BP 120/66
[2019-10-09] MEDS: FUROSEMIDE 100 MG/10ML VIAL IV SCH (18:50)
[2019-10-09 22:00] VITALS: BP 108/63
[2019-10-09] MEDS ORDERED: SUCRALFATE 1 GM/10 ML ORAL SUSP ONE (23:04)
[2019-10-09 23:44] LABS: Urine Bacteria FEW /hpf (None Seen); Urine Blood 1+ /uL (Negative); Urine Hyaline Cast MANY /lpf (0 - 2); Urine Mucus FEW (None Seen); Urine Specific Gravity 1.007 (1.001-1.035); Urine WBC <1 /hpf (0 - 3)
[2019-10-10 05:00] VITALS: BP 110/58
[2019-10-10 06:17] LABS: Potassium 3.8 mmol/L (3.5-5.1)
[2019-10-10 06:22] LABS: BUN/Creatinine Ratio 18.9; Calcium 7.8 mg/dL (8.5-10.1)
[2019-10-10] MEDS: FUROSEMIDE 100 MG/10ML VIAL IV SCH ×2 (06:43→17:59)
[2019-10-10 08:00] VITALS: BP 116/73
[2019-10-10] MEDS: ENOXAPARIN SOD 40 MG/0.4 ML SYRINGE SC SCH (10:08)
[2019-10-10] MEDS: POTASSIUM CHL 10 Meq TABLET PO SCH ×2 (10:08→21:32)
[2019-10-10] MEDS: SPIRONOLACTONE 25 MG TAB PO SCH (10:08)
[2019-10-10 12:00] VITALS: BP 107/71
[2019-10-10 17:00] VITALS: BP 109/65
[2019-10-10 21:45] VITALS: BP 122/78
[2019-10-11] VITALS (7 sets, daily range): BP systolic 105–128; BP diastolic 62–75
[2019-10-11] MEDS ORDERED: FUROSEMIDE 20 MG/2 ML VIAL ONE (06:36)
[2019-10-11] MEDS: FUROSEMIDE 100 MG/10ML VIAL IV SCH ×3 (06:42→22:23)
[2019-10-11 08:19] LABS: BUN/Creatinine Ratio 21.3; Calcium 8.1 mg/dL (8.5-10.1); Potassium 3.2 mmol/L (3.5-5.1)
[2019-10-11] MEDS: SPIRONOLACTONE 25 MG TAB PO SCH ×3 (09:11→22:21)
[2019-10-11] MEDS: ENOXAPARIN SOD 40 MG/0.4 ML SYRINGE SC SCH (09:11)
[2019-10-11] MEDS: POTASSIUM CHL 10 Meq TABLET PO SCH ×3 (09:12→22:22)
[2019-10-11] MEDS ORDERED: POTASSIUM CHL 20 Meq TABLET PO ONE (12:45)
[2019-10-11] MEDS ORDERED: FUROSEMIDE 100 MG/10ML VIAL IV SCH (12:45)
[2019-10-12] VITALS (8 sets, daily range): BP systolic 102–137; BP diastolic 58–75
[2019-10-12] MEDS: FUROSEMIDE 100 MG/10ML VIAL IV SCH ×3 (06:16→21:25)
[2019-10-12] MEDS: POTASSIUM CHL 10 Meq TABLET PO SCH ×3 (06:16→21:25)
[2019-10-12 07:34] LABS: BUN/Creatinine Ratio 19.4; Calcium 8.9 mg/dL (8.5-10.1); Potassium 3.9 mmol/L (3.5-5.1)
[2019-10-12] MEDS: SPIRONOLACTONE 25 MG TAB PO SCH ×2 (11:22→21:26)
[2019-10-12] MEDS: ENOXAPARIN SOD 40 MG/0.4 ML SYRINGE SC SCH (11:23)
[2019-10-12] MEDS ORDERED: LIDOCAINE 2% (LOCAL ANESTH.) PF 5ml SDV ONE (16:22)
[2019-10-13 05:00] VITALS: BP 104/65
[2019-10-13] MEDS: POTASSIUM CHL 10 Meq TABLET PO SCH ×3 (05:44→22:13)
[2019-10-13] MEDS: FUROSEMIDE 100 MG/10ML VIAL IV SCH ×3 (05:44→22:12)
[2019-10-13 08:00] VITALS: BP 125/72
[2019-10-13] MEDS: HYDROcodone-ACET 10/325MG TAB PO PRN ×4 (08:12→22:12)
[2019-10-13 09:04] VITALS: BP 125/72
[2019-10-13] MEDS: ENOXAPARIN SOD 40 MG/0.4 ML SYRINGE SC SCH (10:27)
[2019-10-13] MEDS: SPIRONOLACTONE 25 MG TAB PO SCH ×2 (10:28→22:12)
[2019-10-13 12:43] VITALS: BP 109/66
[2019-10-13 17:28] VITALS: BP 101/60
[2019-10-13 22:27] VITALS: BP 115/69
[2019-10-14 05:24] VITALS: BP 116/65
[2019-10-14] MEDS: FUROSEMIDE 100 MG/10ML VIAL IV SCH ×3 (05:50→22:11)
[2019-10-14] MEDS: POTASSIUM CHL 10 Meq TABLET PO SCH ×3 (05:51→22:11)
[2019-10-14 09:00] VITALS: BP 137/79
[2019-10-14] MEDS: SPIRONOLACTONE 25 MG TAB PO SCH ×2 (09:45→22:11)
[2019-10-14] MEDS: ENOXAPARIN SOD 40 MG/0.4 ML SYRINGE SC SCH (09:45)
[2019-10-14 13:00] VITALS: BP 103/63
[2019-10-14 17:00] VITALS: BP 132/75
[2019-10-14 22:00] VITALS: BP 104/60
[2019-10-14] MEDS: HYDROcodone-ACET 10/325MG TAB PO PRN (22:48)
[2019-10-15 04:59] VITALS: BP 114/64
[2019-10-15 05:51] LABS: Basophils # (auto) 0 10 ^3/uL (0-0.2); Lymphocytes # (auto) 1.4 10 ^3/uL (0.4-5.4); Monocytes # (auto) 0.4 10 ^3/uL (0-1.3); Neutrophils # (auto) 2.1 10 ^3/uL (1.6-8.6); White Blood Cell 4.1 10^3/uL (4.4-10.8)
[2019-10-15] MEDS: FUROSEMIDE 100 MG/10ML VIAL IV SCH ×3 (05:51→22:26)
[2019-10-15] MEDS: POTASSIUM CHL 10 Meq TABLET PO SCH ×3 (05:51→22:25)
[2019-10-15 05:53] LABS: Basophils % (auto) 0.9 % (0.0-2.0); Eosinophils # (auto) 0.1 10 ^3/uL (0-0.8); Eosinophils % (auto) 3.6 % (0.0-7.0); Hematocrit 30.6 % (41.0-53.0); Hemoglobin 10.1 g/dL (13.5-17.5); Lymphocytes % (auto) 33.3 % (10.0-50.0); Mean Corpuscular Hemoglobin 27.1 pg (28.0-32.0); Mean Corpuscular Hgb Conc. 33.1 g/dL (32.0-36.0); Mean Corpuscular Volume 81.7 fL (80.0-100.0); Monocytes % (auto) 10.4 % (0.0-12.0); Neutrophils % (auto) 51.8 % (37.0-80.0); Nucleated Red Blood Cells % 0.1 %; Platelet Count (auto) 277 10^3/uL (140-450); Red Blood Cells 3.74 10^6/uL (4.5-5.90)
[2019-10-15 06:14] LABS: Red Cell Distribution Width 22.1 % (11.8-14.3)
[2019-10-15 06:18] LABS: Potassium 4.3 mmol/L (3.5-5.1)
[2019-10-15 06:34] LABS: Albumin 2.3 g/dL (3.4-5.0); BUN/Creatinine Ratio 29.3; Bilirubin, Total 1.6 mg/dL (0.2-1.0); Calcium 8.8 mg/dL (8.5-10.1)
[2019-10-15 08:00] VITALS: BP 111/72
[2019-10-15 09:20] VITALS: BP 111/72
[2019-10-15] MEDS: ENOXAPARIN SOD 40 MG/0.4 ML SYRINGE SC SCH (10:00)
[2019-10-15] MEDS: SPIRONOLACTONE 25 MG TAB PO SCH ×2 (10:00→22:25)
[2019-10-15 12:50] VITALS: BP 110/67
[2019-10-15 16:49] VITALS: BP 118/73
[2019-10-15 22:00] VITALS: BP 144/83
[2019-10-16] VITALS (7 sets, daily range): BP systolic 114–117; BP diastolic 68–70
[2019-10-16] MEDS: POTASSIUM CHL 10 Meq TABLET PO SCH ×3 (06:00→21:56)
[2019-10-16] MEDS: FUROSEMIDE 100 MG/10ML VIAL IV SCH (06:02)
[2019-10-16] MEDS: ENOXAPARIN SOD 40 MG/0.4 ML SYRINGE SC SCH (10:00)
[2019-10-16] MEDS: SPIRONOLACTONE 25 MG TAB PO SCH ×2 (10:10→21:56)
[2019-10-16] MEDS: HYDROcodone-ACET 10/325MG TAB PO PRN ×2 (10:11→20:52)
[2019-10-16] MEDS: FUROSEMIDE 40 MG TAB PO SCH (17:40)
[2019-10-17 04:30] VITALS: BP 132/85
[2019-10-17] MEDS: FUROSEMIDE 40 MG TAB PO SCH ×2 (06:06→18:00)
[2019-10-17] MEDS: POTASSIUM CHL 10 Meq TABLET PO SCH ×3 (06:06→22:00)
[2019-10-17 06:23] LABS: Potassium 4.3 mmol/L (3.5-5.1)
[2019-10-17 06:46] LABS: Albumin 2.6 g/dL (3.4-5.0); Bilirubin, Total 1.8 mg/dL (0.2-1.0); Calcium 8.9 mg/dL (8.5-10.1); Total Protein 8.6 g/dL (6.4-8.2)
[2019-10-17 08:00] VITALS: BP 104/67
[2019-10-17 09:00] VITALS: BP 104/67
[2019-10-17] MEDS: ENOXAPARIN SOD 40 MG/0.4 ML SYRINGE SC SCH (09:52)
[2019-10-17] MEDS: SPIRONOLACTONE 25 MG TAB PO SCH ×2 (09:52→22:51)
[2019-10-17 13:00] VITALS: BP 137/82
[2019-10-17 17:00] VITALS: BP 106/71
[2019-10-17 22:00] VITALS: BP 107/62
[2019-10-18 05:00] VITALS: BP 130/76
[2019-10-18] MEDS: FUROSEMIDE 40 MG TAB PO SCH ×2 (05:36→17:46)
[2019-10-18] MEDS: POTASSIUM CHL 10 Meq TABLET PO SCH ×3 (05:37→21:35)
[2019-10-18 08:58] VITALS: BP 143/76
[2019-10-18] MEDS: SPIRONOLACTONE 25 MG TAB PO SCH ×2 (10:41→21:34)
[2019-10-18] MEDS: ENOXAPARIN SOD 40 MG/0.4 ML SYRINGE SC SCH (10:41)
[2019-10-18 12:56] VITALS: BP 109/75
[2019-10-18 16:51] VITALS: BP 103/67
[2019-10-18 22:00] VITALS: BP 129/70
[2019-10-19] MEDS: HYDROcodone-ACET 10/325MG TAB PO PRN (00:36)
[2019-10-19 05:00] VITALS: BP 110/66
[2019-10-19] MEDS: POTASSIUM CHL 10 Meq TABLET PO SCH ×3 (06:33→21:45)
[2019-10-19] MEDS: FUROSEMIDE 40 MG TAB PO SCH ×2 (06:34→17:12)
[2019-10-19 08:52] VITALS: BP 113/64
[2019-10-19] MEDS: ENOXAPARIN SOD 40 MG/0.4 ML SYRINGE SC SCH (09:17)
[2019-10-19] MEDS: SPIRONOLACTONE 25 MG TAB PO SCH ×2 (09:17→21:46)
[2019-10-19 12:54] VITALS: BP 103/67
[2019-10-19 13:46] LABS: BUN/Creatinine Ratio 29.8; Calcium 8.5 mg/dL (8.5-10.1); Potassium 4.5 mmol/L (3.5-5.1)
[2019-10-19 17:00] VITALS: BP 106/64
[2019-10-19 22:00] VITALS: BP 98/49
[2019-10-20 04:19] VITALS: BP 93/55
[2019-10-20] MEDS: FUROSEMIDE 40 MG TAB PO SCH ×2 (05:49→17:47)
[2019-10-20] MEDS: POTASSIUM CHL 10 Meq TABLET PO SCH ×3 (06:04→21:55)
[2019-10-20 09:00] VITALS: BP 98/62
[2019-10-20] MEDS: SPIRONOLACTONE 25 MG TAB PO SCH ×2 (09:59→21:55)
[2019-10-20] MEDS: ENOXAPARIN SOD 40 MG/0.4 ML SYRINGE SC SCH (09:59)
[2019-10-20 10:01] VITALS: BP 107/47
[2019-10-20 13:00] VITALS: BP 107/67
[2019-10-20 17:00] VITALS: BP 102/60
[2019-10-20 22:00] VITALS: BP 108/61
[2019-10-21 05:00] VITALS: BP 105/66
[2019-10-21] MEDS: POTASSIUM CHL 10 Meq TABLET PO SCH ×2 (06:17→14:09)
[2019-10-21] MEDS: FUROSEMIDE 40 MG TAB PO SCH (06:18)
[2019-10-21 08:00] VITALS: BP 114/73
[2019-10-21] MEDS: SPIRONOLACTONE 25 MG TAB PO SCH (10:00)
[2019-10-21 12:00] VITALS: BP 104/63
[2019-10-21 17:00] VITALS: BP 123/65
[2019-10-21] MEDS ORDERED: FURO40TA4 PO (17:12)
[2019-10-21] MEDS ORDERED: SPIR25TA88 PO (17:12)
[2019-10-21] MEDS ORDERED: POTA-167 PO (17:12)
[2019-10-21 17:53] VITALS: BP 123/65
== END 2019-10-21 21:00 | DRG 433 ==
LOC: ER 14:57 → EEVIPCON 14:57 → OVERFLOW 14:58 → WEST WING 17:14
PROVIDERS: ADMIT Internal Medicine; ATTEND Internal Medicine
PROC: 0W9G3ZZ Drainage of Peritoneal Cavity, Percutaneous Approach (ICD-10-PCS; principal; 2019-10-09)
PROC: 0W993ZZ Drainage of Right Pleural Cavity, Percutaneous Approach (ICD-10-PCS; 2019-10-09)
PROC: 0W9930Z Drainage of Right Pleural Cavity with Drainage Device, Percutaneous Approach (ICD-10-PCS; 2019-10-12)
DX: K74.60 Unspecified cirrhosis of liver (principal); J93.9 Pneumothorax, unspecified; R18.8 Other ascites; J98.11 Atelectasis; J90 Pleural effusion, not elsewhere classified; I31.3 Pericardial effusion (noninflammatory); J47.0 Bronchiectasis with acute lower respiratory infection; E44.0 Moderate protein-calorie malnutrition; R14.0 Abdominal distension (gaseous); K21.9 Gastro-esophageal reflux disease without esophagitis; I10 Essential (primary) hypertension; Z79.899 Other long term (current) drug therapy; Z86.711 Personal history of pulmonary embolism
CPT/HCPCS: 10022; 32555; 36415; 49083; 71045; 71250; 74176; 76604; 76700; 76942; 80048; 80053; 81001; 82150; 83690; 84443; 84484; 85025; 85610; 85730; 87081; 96365; 96375; G0378; J0696; J2001

== ENCOUNTER 2021-06-07 15:15 | Inpatient (IN) | payer OTHER ==
[~2021-06-07] VITALS: Ht 175.3 cm; Wt 93.6 kg
[~2021-06-07 15:15] MED LIST changes: +POTA-167 PO; +SPIR25TA PO; -SPIR25TA88 PO
[2021-06-07] MEDS ORDERED: SODIUM CHLORIDE 0.9% 500 ML IVB ONE (15:30)
[2021-06-07] MEDS ORDERED: ONDANSETRON HCL 4 MG/2 ML VIAL IV ONE (15:30)
[2021-06-07] MEDS ORDERED: MORPHINE SULFATE 4 MG/ML SYR/VIAL IV ONE (15:30)
[2021-06-07 16:14] LABS: Basophils # (auto) 0 10 ^3/uL (0-0.2); Basophils % (auto) 0.1 % (0.0-2.0); Eosinophils # (auto) 0 10 ^3/uL (0-0.8); Eosinophils % (auto) 0.2 % (0.0-7.0); Hematocrit 36.7 % (41.0-53.0); Hemoglobin 12.8 g/dL (13.5-17.5); Lymphocytes # (auto) 1.1 10 ^3/uL (0.4-5.4); Lymphocytes % (auto) 10.5 % (10.0-50.0); Mean Corpuscular Hemoglobin 30.2 pg (28.0-32.0); Mean Corpuscular Hgb Conc. 34.8 g/dL (32.0-36.0); Mean Corpuscular Volume 86.7 fL (80.0-100.0); Monocytes # (auto) 0.8 10 ^3/uL (0-1.3); Monocytes % (auto) 7.8 % (0.0-12.0); Neutrophils # (auto) 8.4 10 ^3/uL (1.6-8.6); Neutrophils % (auto) 81.4 % (37.0-80.0); Red Blood Cells 4.23 10^6/uL (4.5-5.90); Red Cell Distribution Width 16.2 % (11.8-14.3); White Blood Cell 10.4 10^3/uL (4.4-10.8)
[2021-06-07 16:25] LABS: Albumin 3.6 g/dL (3.4-5.0); Calcium 8.8 mg/dL (8.5-10.1); Potassium 4.1 mmol/L (3.5-5.1)
[2021-06-07 16:33] LABS: BUN/Creatinine Ratio 22.4; Bilirubin, Total 6.5 mg/dL (0.2-1.0); Total Protein 7.6 g/dL (6.4-8.2)
[2021-06-07 16:35] LABS: INR 1.05 (0.9-1.15)
[2021-06-07] MEDS ORDERED: NITROGLYCERIN 0.4 MG SL TAB SL PRN (19:00)
[2021-06-07 21:11] VITALS: BP 117/70
[2021-06-07] MEDS: D5W/SOD CHL 0.45% 1,000 ML IV SCH (22:00)
[2021-06-08] MEDS ORDERED: ASPI-543 PO (00:20)
[2021-06-08] MEDS ORDERED: FERR324T25 PO (00:20)
[2021-06-08] MEDS ORDERED: PANC1CAP PO (00:20)
[2021-06-08] MEDS ORDERED: OMEP20TA PO (00:20)
[2021-06-08] MEDS ORDERED: SPIR50TA5 PO (00:20)
[2021-06-08] MEDS: D5W/SOD CHL 0.45% 1,000 ML IV SCH ×4 (01:40→16:25)
[2021-06-08 05:00] VITALS: BP 118/61
[2021-06-08 07:45] LABS: Basophils # (auto) 0 10 ^3/uL (0-0.2); Basophils % (auto) 0.3 % (0.0-2.0); Eosinophils # (auto) 0 10 ^3/uL (0-0.8); Eosinophils % (auto) 0.5 % (0.0-7.0); Hematocrit 33.1 % (41.0-53.0); Hemoglobin 11.7 g/dL (13.5-17.5); Lymphocytes # (auto) 0.9 10 ^3/uL (0.4-5.4); Lymphocytes % (auto) 10.9 % (10.0-50.0); Mean Corpuscular Hemoglobin 30.6 pg (28.0-32.0); Mean Corpuscular Hgb Conc. 35.4 g/dL (32.0-36.0); Mean Corpuscular Volume 86.5 fL (80.0-100.0); Monocytes # (auto) 0.7 10 ^3/uL (0-1.3); Monocytes % (auto) 8.7 % (0.0-12.0); Neutrophils # (auto) 6.5 10 ^3/uL (1.6-8.6); Neutrophils % (auto) 79.6 % (37.0-80.0); Red Blood Cells 3.83 10^6/uL (4.5-5.90); Red Cell Distribution Width 16.1 % (11.8-14.3); White Blood Cell 8.2 10^3/uL (4.4-10.8)
[2021-06-08 07:57] LABS: INR 1.04 (0.9-1.15); Partial Thromboplastin Time 32.1 sec (23.6-33.0)
[2021-06-08 08:00] LABS: Albumin 2.9 g/dL (3.4-5.0); Potassium 3.7 mmol/L (3.5-5.1)
[2021-06-08 08:04] LABS: BUN/Creatinine Ratio 24.1; Bilirubin, Total 4.2 mg/dL (0.2-1.0); Total Protein 6.5 g/dL (6.4-8.2)
[2021-06-08 08:10] VITALS: BP 154/55
[2021-06-08] MEDS ORDERED: TPN PER PHARMACY 0 ML IV SCH (10:30)
[2021-06-08 10:58] LABS: Magnesium 2.6 mg/dL (1.6-2.6)
[2021-06-08 11:04] LABS: Phosphorus 3.4 mg/dL (2.5-4.90); Pre Albumin 10.5 mg/dL (20.0-40.0)
[2021-06-08 12:00] VITALS: BP 122/68
[2021-06-08 13:08] LABS: Urine Bacteria NONE SEEN /hpf (None Seen); Urine Blood Negative /uL (Negative); Urine Mucus FEW (None Seen); Urine Specific Gravity 1.026 (1.001-1.035); Urine WBC 3 /hpf (0 - 3)
[2021-06-08 16:05] VITALS: BP_SYST 117; BP_DIAS 62; BP_DIAS 92
[2021-06-08] MEDS ORDERED: AMINO ACID INFUSION IN D10W 1,000 ML IV NR (20:00)
[2021-06-08] MEDS: metroNIDAZOLE 500MG/100ML 100 ML IV SCH (21:21)
[2021-06-08 22:00] VITALS: BP 113/61
[2021-06-09] VITALS (7 sets, daily range): BP systolic 115–148; BP diastolic 54–80
[2021-06-09] MEDS ORDERED: DEXTROSE (50%) 50ML SYRG IV SCH
[2021-06-09] MEDS: ACCU-CHEK COMFORT CURVE STRIP VI SCH ×5 (00:24→22:03)
[2021-06-09] MEDS: D5W/SOD CHL 0.45% 1,000 ML IV SCH ×3 (05:06→22:05)
[2021-06-09] MEDS: metroNIDAZOLE 500MG/100ML 100 ML IV SCH ×3 (05:54→21:20)
[2021-06-09 06:37] LABS: Calcium 8.1 mg/dL (8.5-10.1); Magnesium 2.4 mg/dL (1.6-2.6); Potassium 4.3 mmol/L (3.5-5.1)
[2021-06-09 06:43] LABS: Albumin 2.7 g/dL (3.4-5.0); Bilirubin, Total 4.3 mg/dL (0.2-1.0); Phosphorus 3.1 mg/dL (2.5-4.90); Total Protein 6.2 g/dL (6.4-8.2)
[2021-06-09 10:18] LABS: Basophils # (auto) 0 10 ^3/uL (0-0.2); Basophils % (auto) 0.4 % (0.0-2.0); Eosinophils # (auto) 0 10 ^3/uL (0-0.8); Eosinophils % (auto) 0.4 % (0.0-7.0); Hematocrit 35.8 % (41.0-53.0); Hemoglobin 12.4 g/dL (13.5-17.5); Lymphocytes # (auto) 0.8 10 ^3/uL (0.4-5.4); Lymphocytes % (auto) 13.5 % (10.0-50.0); Mean Corpuscular Hgb Conc. 34.8 g/dL (32.0-36.0); Mean Corpuscular Volume 86.4 fL (80.0-100.0); Monocytes # (auto) 0.5 10 ^3/uL (0-1.3); Monocytes % (auto) 8.7 % (0.0-12.0); Neutrophils # (auto) 4.8 10 ^3/uL (1.6-8.6); Nucleated Red Blood Cells % 0.1 %; Red Blood Cells 4.14 10^6/uL (4.5-5.90); Red Cell Distribution Width 16.2 % (11.8-14.3); White Blood Cell 6.3 10^3/uL (4.4-10.8)
[2021-06-09 10:38] LABS: INR 1.02 (0.9-1.15); Partial Thromboplastin Time 25.3 sec (23.6-33.0)
[2021-06-09] MEDS: levoFLOXacin 500MG 100 ML IV SCH (11:40)
[2021-06-09] MEDS: InsuLIN REG 1unit/0.01ml Soln (100units/ml) SC SCH ×4 (12:00→22:02)
[2021-06-09] MEDS ORDERED: LIDOCAINE 1% (LOCAL ANESTH.) PF 5ml SDV ID ONE (12:00)
[2021-06-09] MEDS ORDERED: LIDOCAINE 2%HCL (LOCAL ANESTH.) INJ 20ML MDV ONE (14:28)
[2021-06-09] MEDS ORDERED: IODIXANOL 320MG/ML 100ML BTL IV ONE (14:29)
[2021-06-09] MEDS ORDERED: fentaNYL CITRATE 100 MCG/2 ML VL ONE (14:38)
[2021-06-09] MEDS ORDERED: MIDAZOLAM HCL 2MG/2ML 2ml VIAL (1mg/ml) ONE (14:38)
[2021-06-09] MEDS ORDERED: IOHEXOL 350 MG/ML 100ML IJ ONE (14:52)
[2021-06-09] MEDS ORDERED: HYDROmorphone HCL 2 MG/ML VL ONE (15:06)
[2021-06-09] MEDS ORDERED: AMINO ACID INFUSION IN D10W 1,000 ML IV NR (20:00)
[2021-06-09] MEDS: MORPHINE SULFATE INJECTION 2 MG/ML SYRG IV PRN (21:13)
[2021-06-09] MEDS: SODIUM CHLOR 0.9% PF (SALINE LOCK) 10ML VIAL/SYR IV SCH (21:20)
[2021-06-10 05:00] VITALS: BP 114/60
[2021-06-10 05:48] LABS: Albumin 2.5 g/dL (3.4-5.0)
[2021-06-10 05:54] LABS: BUN/Creatinine Ratio 21.3; Bilirubin, Total 4.8 mg/dL (0.2-1.0); Magnesium 3.2 mg/dL (1.6-2.6); Phosphorus 2.5 mg/dL (2.5-4.90)
[2021-06-10] MEDS: ACCU-CHEK COMFORT CURVE STRIP VI SCH ×4 (06:14→23:55)
[2021-06-10] MEDS: metroNIDAZOLE 500MG/100ML 100 ML IV SCH ×3 (06:14→21:42)
[2021-06-10] MEDS: InsuLIN REG 1unit/0.01ml Soln (100units/ml) SC SCH ×3 (06:14→17:46)
[2021-06-10 08:07] LABS: Amylase 39 U/L (25-115); Lipase 187 U/L (73-393)
[2021-06-10] MEDS: D5W/SOD CHL 0.45% 1,000 ML IV SCH ×2 (08:24→17:30)
[2021-06-10 08:26] VITALS: BP 133/62
[2021-06-10] MEDS: levoFLOXacin 500MG 100 ML IV SCH (10:09)
[2021-06-10] MEDS: MORPHINE SULFATE 4 MG/ML SYR/VIAL IV PRN ×2 (10:10→21:43)
[2021-06-10] MEDS: SODIUM CHLOR 0.9% PF (SALINE LOCK) 10ML VIAL/SYR IV SCH ×2 (10:10→21:42)
[2021-06-10] MEDS: PANTOPRAZOLE 40 MG/10 ML VIAL INJ IV SCH (10:10)
[2021-06-10 13:00] VITALS: BP 135/64
[2021-06-10 17:00] VITALS: BP 142/70
[2021-06-10] MEDS ORDERED: TPN PER PHARMACY IV NR ×7 (20:00)
[2021-06-10 22:00] VITALS: BP 129/70
[2021-06-11] MEDS: InsuLIN REG 1unit/0.01ml Soln (100units/ml) SC SCH ×5 (00:14→23:52)
[2021-06-11] MEDS: D5W/SOD CHL 0.45% 1,000 ML IV SCH ×3 (02:36→23:06)
[2021-06-11 05:00] VITALS: BP 122/66
[2021-06-11] MEDS: metroNIDAZOLE 500MG/100ML 100 ML IV SCH ×3 (06:11→23:05)
[2021-06-11] MEDS: ACCU-CHEK COMFORT CURVE STRIP VI SCH ×4 (06:12→23:52)
[2021-06-11 06:27] LABS: Albumin 2.4 g/dL (3.4-5.0); Calcium 7.7 mg/dL (8.5-10.1); Magnesium 2.8 mg/dL (1.6-2.6); Potassium 3.6 mmol/L (3.5-5.1)
[2021-06-11 06:30] LABS: BUN/Creatinine Ratio 17.9; Bilirubin, Total 2.5 mg/dL (0.2-1.0); Phosphorus 2.9 mg/dL (2.5-4.90); Total Protein 5.6 g/dL (6.4-8.2)
[2021-06-11] MEDS ORDERED: SUCCINYLCHOLINE CHLORIDE 20 MG/ML 10ML VIAL IV ONE (07:21)
[2021-06-11] MEDS ORDERED: fentaNYL CITRATE 100 MCG/2 ML VL ONE ×2 (07:22→08:32)
[2021-06-11] MEDS ORDERED: MIDAZOLAM HCL 2MG/2ML 2ml VIAL (1mg/ml) ONE (07:23)
[2021-06-11] MEDS ORDERED: PROPOFOL 10 MG/ML 20 ML IV ONE (07:26)
[2021-06-11] MEDS ORDERED: ceFAZolin 1GM/50ML 100 ML IV ONE (07:27)
[2021-06-11] MEDS ORDERED: ROCURONIUM 10MG/ML 10ML VIAL IV ONE (07:27)
[2021-06-11] MEDS ORDERED: DexAMETHasone SOD PHOS 10MG/1ML VIAL INJ ONE (08:14)
[2021-06-11] MEDS ORDERED: POVIDONE IODINE 10 % TOPICAL OINT 30GM TOP ONE (08:53)
[2021-06-11] MEDS ORDERED: BUPIVACAINE W/ EPINEPH 0.25% INJ 50ML MDV ONE (08:58)
[2021-06-11] MEDS ORDERED: GLYCOPYRROLATE 0.2 MG/ML 1ML VIAL ONE (09:05)
[2021-06-11] MEDS ORDERED: NEOSTIGMINE 1 MG/ML INJ (10mg/10ML VIAL) ONE (09:06)
[2021-06-11] MEDS ORDERED: ONDANSETRON HCL 4 MG/2 ML VIAL ONE (09:08)
[2021-06-11] MEDS ORDERED: ePHEDrine SULFATE 50 MG/ML AMP IV PRN (09:45)
[2021-06-11] MEDS ORDERED: METOCLOPRAMIDE HCL 5MG/ml INJ 2ml VIAL IV PRN (09:45)
[2021-06-11] MEDS ORDERED: HYDROmorphone HCL 2 MG/ML VL IV PRN (09:45)
[2021-06-11] MEDS: HYDROmorphone HCL 2 MG/ML VL IV PRN ×2 (09:58→10:09)
[2021-06-11] MEDS: SODIUM CHLOR 0.9% PF (SALINE LOCK) 10ML VIAL/SYR IV SCH ×2 (10:00→23:07)
[2021-06-11] MEDS: levoFLOXacin 500MG 100 ML IV SCH (12:10)
[2021-06-11] MEDS: PANTOPRAZOLE 40 MG/10 ML VIAL INJ IV SCH (12:10)
[2021-06-11] MEDS: ENOXAPARIN SOD 40 MG/0.4 ML SYRINGE SC SCH (12:11)
[2021-06-11 13:00] VITALS: BP 131/67
[2021-06-11 17:00] VITALS: BP 118/69
[2021-06-11] MEDS ORDERED: TPN PER PHARMACY IV NR ×8 (20:00)
[2021-06-11 22:00] VITALS: BP 126/72
[2021-06-11] MEDS: MORPHINE SULFATE 4 MG/ML SYR/VIAL IV PRN (23:48)
[2021-06-12 05:24] VITALS: BP 131/72
[2021-06-12 06:13] LABS: Potassium 4.7 mmol/L (3.5-5.1)
[2021-06-12 06:17] LABS: Albumin 2.1 g/dL (3.4-5.0); BUN/Creatinine Ratio 19.7; Bilirubin, Total 2.1 mg/dL (0.2-1.0); Calcium 7.7 mg/dL (8.5-10.1); Magnesium 2.7 mg/dL (1.6-2.6); Phosphorus 2.8 mg/dL (2.5-4.90); Total Protein 5.2 g/dL (6.4-8.2)
[2021-06-12] MEDS: metroNIDAZOLE 500MG/100ML 100 ML IV SCH ×3 (07:01→23:12)
[2021-06-12] MEDS: D5W/SOD CHL 0.45% 1,000 ML IV SCH ×3 (07:02→23:12)
[2021-06-12] MEDS: InsuLIN REG 1unit/0.01ml Soln (100units/ml) SC SCH ×4 (07:03→23:15)
[2021-06-12] MEDS: ACCU-CHEK COMFORT CURVE STRIP VI SCH ×4 (07:03→23:15)
[2021-06-12 09:00] VITALS: BP 121/70
[2021-06-12] MEDS: PANTOPRAZOLE 40 MG/10 ML VIAL INJ IV SCH (09:31)
[2021-06-12] MEDS: levoFLOXacin 500MG 100 ML IV SCH (09:31)
[2021-06-12] MEDS: ENOXAPARIN SOD 40 MG/0.4 ML SYRINGE SC SCH (09:31)
[2021-06-12] MEDS: SODIUM CHLOR 0.9% PF (SALINE LOCK) 10ML VIAL/SYR IV SCH ×2 (09:31→23:15)
[2021-06-12] MEDS: MORPHINE SULFATE 4 MG/ML SYR/VIAL IV PRN ×2 (09:56→14:17)
[2021-06-12 12:23] LABS: Hematocrit 32.9 % (41.0-53.0); Hemoglobin 11.3 g/dL (13.5-17.5); Mean Corpuscular Hemoglobin 30.1 pg (28.0-32.0); Mean Corpuscular Hgb Conc. 34.4 g/dL (32.0-36.0); Mean Corpuscular Volume 87.4 fL (80.0-100.0); Red Blood Cells 3.76 10^6/uL (4.5-5.90); Red Cell Distribution Width 16.3 % (11.8-14.3); White Blood Cell 13.5 10^3/uL (4.4-10.8)
[2021-06-12 12:26] LABS: Basophils % (manual) 0 (0.0-2.0); Blast Cells 0; Eosinophils % (manual) 0 (0-7); Promyelocytes % 0; Reactive Lymphocytes 0
[2021-06-12 13:00] VITALS: BP 144/78
[2021-06-12 13:39] LABS: Band Neutrophils % (manual) 9; Lymphocytes % (manual) 17 (10.0-50.0); Metamyelocytes % 1; Monocytes % (manual) 5 (0-12); Myelocytes % 1
[2021-06-12] MEDS: ONDANSETRON HCL 4 MG/2 ML VIAL IV PRN ×2 (14:19→23:11)
[2021-06-12 17:00] VITALS: BP 131/76
[2021-06-12] MEDS ORDERED: TPN PER PHARMACY IV NR ×9 (20:00)
[2021-06-12 22:29] VITALS: BP 125/72
[2021-06-12 23:09] VITALS: BP 125/72
[2021-06-13 05:30] VITALS: BP 111/46
[2021-06-13] MEDS: ACCU-CHEK COMFORT CURVE STRIP VI SCH ×3 (06:23→18:02)
[2021-06-13] MEDS: InsuLIN REG 1unit/0.01ml Soln (100units/ml) SC SCH ×3 (06:23→18:01)
[2021-06-13] MEDS: metroNIDAZOLE 500MG/100ML 100 ML IV SCH ×2 (06:24→14:42)
[2021-06-13 06:36] LABS: Calcium 7.6 mg/dL (8.5-10.1); Potassium 4.7 mmol/L (3.5-5.1)
[2021-06-13 06:42] LABS: Albumin 1.8 g/dL (3.4-5.0); BUN/Creatinine Ratio 21.3; Bilirubin, Total 2.5 mg/dL (0.2-1.0); Magnesium 2.3 mg/dL (1.6-2.6); Phosphorus 2.4 mg/dL (2.5-4.90); Total Protein 4.8 g/dL (6.4-8.2)
[2021-06-13] MEDS: ONDANSETRON HCL 4 MG/2 ML VIAL IV PRN (09:28)
[2021-06-13] MEDS: levoFLOXacin 500MG 100 ML IV SCH (09:28)
[2021-06-13] MEDS: PANTOPRAZOLE 40 MG/10 ML VIAL INJ IV SCH (09:28)
[2021-06-13] MEDS: ENOXAPARIN SOD 40 MG/0.4 ML SYRINGE SC SCH (09:29)
[2021-06-13] MEDS: D5W/SOD CHL 0.45% 1,000 ML IV SCH ×2 (09:32→18:42)
[2021-06-13] MEDS: SODIUM CHLOR 0.9% PF (SALINE LOCK) 10ML VIAL/SYR IV SCH ×2 (09:32→22:00)
[2021-06-13 09:41] VITALS: BP 117/64
[2021-06-13 13:00] VITALS: BP 102/69
[2021-06-13] MEDS ORDERED: VANCOMYCIN PER PHARMACY 0 MG IV SCH (15:00)
[2021-06-13] MEDS ORDERED: VANCOMYCIN 1GM/250ML 250 ML IV ONE (16:00)
[2021-06-13 17:22] VITALS: BP 103/64
[2021-06-13] MEDS ORDERED: TPN PER PHARMACY IV NR ×8 (20:00)
[2021-06-13 22:00] VITALS: BP 105/61
[2021-06-14] MEDS: ACCU-CHEK COMFORT CURVE STRIP VI SCH ×4 (00:10→17:43)
[2021-06-14] MEDS: InsuLIN REG 1unit/0.01ml Soln (100units/ml) SC SCH ×4 (00:28→17:48)
[2021-06-14] MEDS: D5W/SOD CHL 0.45% 1,000 ML IV SCH ×4 (04:41→22:53)
[2021-06-14 05:00] VITALS: BP 108/61
[2021-06-14 05:49] LABS: Albumin 1.6 g/dL (3.4-5.0); Calcium 7.4 mg/dL (8.5-10.1); Magnesium 2.5 mg/dL (1.6-2.6); Potassium 4.2 mmol/L (3.5-5.1)
[2021-06-14 05:52] LABS: BUN/Creatinine Ratio 24.2; Bilirubin, Total 1.7 mg/dL (0.2-1.0); Phosphorus 2.4 mg/dL (2.5-4.90); Total Protein 4.5 g/dL (6.4-8.2)
[2021-06-14 07:00] VITALS: BP 104/60
[2021-06-14] MEDS ORDERED: SODIUM PHOSP 40 MEQ in D5W 5% 250 ML IV ONE (08:45)
[2021-06-14] MEDS: PANTOPRAZOLE 40 MG/10 ML VIAL INJ IV SCH (08:47)
[2021-06-14] MEDS: ENOXAPARIN SOD 40 MG/0.4 ML SYRINGE SC SCH (08:48)
[2021-06-14] MEDS: SODIUM CHLOR 0.9% PF (SALINE LOCK) 10ML VIAL/SYR IV SCH ×2 (09:52→22:53)
[2021-06-14] MEDS: VANCOMYCIN 1GM/250ML 250 ML IV SCH (12:48)
[2021-06-14 13:00] VITALS: BP 103/62
[2021-06-14 17:00] VITALS: BP 104/58
[2021-06-14] MEDS: MORPHINE SULFATE 4 MG/ML SYR/VIAL IV PRN (17:44)
[2021-06-14 20:00] VITALS: BP 114/62
[2021-06-14] MEDS ORDERED: TPN PER PHARMACY IV NR ×9 (20:00)
[2021-06-14 23:00] VITALS: BP 131/73
[2021-06-15] MEDS: ACCU-CHEK COMFORT CURVE STRIP VI SCH ×5 (00:27→23:21)
[2021-06-15] MEDS: InsuLIN REG 1unit/0.01ml Soln (100units/ml) SC SCH ×5 (00:27→23:20)
[2021-06-15] MEDS: ONDANSETRON HCL 4 MG/2 ML VIAL IV PRN ×2 (00:28→22:59)
[2021-06-15] MEDS: VANCOMYCIN 1GM/250ML 250 ML IV SCH ×2 (06:11→23:08)
[2021-06-15 06:25] LABS: Albumin 1.5 g/dL (3.4-5.0); Calcium 6.9 mg/dL (8.5-10.1); Magnesium 2.7 mg/dL (1.6-2.6); Potassium 3.9 mmol/L (3.5-5.1)
[2021-06-15 06:30] LABS: BUN/Creatinine Ratio 27.9; Bilirubin, Total 1.2 mg/dL (0.2-1.0); Pre Albumin 4.7 mg/dL (20.0-40.0); Total Protein 4.8 g/dL (6.4-8.2)
[2021-06-15] MEDS: D5W/SOD CHL 0.45% 1,000 ML IV SCH ×2 (06:42→10:15)
[2021-06-15 07:00] VITALS: BP 122/64
[2021-06-15] MEDS: ENOXAPARIN SOD 40 MG/0.4 ML SYRINGE SC SCH (09:32)
[2021-06-15] MEDS: SODIUM CHLOR 0.9% PF (SALINE LOCK) 10ML VIAL/SYR IV SCH ×2 (09:32→22:59)
[2021-06-15] MEDS: PANTOPRAZOLE 40 MG/10 ML VIAL INJ IV SCH (09:32)
[2021-06-15 13:00] VITALS: BP 117/67
[2021-06-15] MEDS: levoFLOXacin 500MG 100 ML IV SCH (13:04)
[2021-06-15 17:00] VITALS: BP 112/64
[2021-06-15] MEDS: MORPHINE SULFATE 4 MG/ML SYR/VIAL IV PRN (18:34)
[2021-06-15 20:00] VITALS: BP 108/59
[2021-06-15 22:00] VITALS: BP 107/59
[2021-06-16] MEDS: D5W/SOD CHL 0.45% 1,000 ML IV SCH ×3 (00:38→23:57)
[2021-06-16 05:00] VITALS: BP 116/63
[2021-06-16 05:58] LABS: Basophils # (auto) 0.1 10 ^3/uL (0-0.2); Basophils % (auto) 0.4 % (0.0-2.0); Eosinophils # (auto) 0.1 10 ^3/uL (0-0.8); Eosinophils % (auto) 0.5 % (0.0-7.0); Hematocrit 29.1 % (41.0-53.0); Hemoglobin 10.1 g/dL (13.5-17.5); Lymphocytes # (auto) 0.7 10 ^3/uL (0.4-5.4); Lymphocytes % (auto) 4.1 % (10.0-50.0); Mean Corpuscular Hemoglobin 29.8 pg (28.0-32.0); Mean Corpuscular Hgb Conc. 34.6 g/dL (32.0-36.0); Monocytes # (auto) 1.2 10 ^3/uL (0-1.3); Monocytes % (auto) 6.7 % (0.0-12.0); Neutrophils # (auto) 15.5 10 ^3/uL (1.6-8.6); Neutrophils % (auto) 88.3 % (37.0-80.0); Nucleated Red Blood Cells % 0.1 %; Red Blood Cells 3.39 10^6/uL (4.5-5.90); Red Cell Distribution Width 16.8 % (11.8-14.3); White Blood Cell 17.5 10^3/uL (4.4-10.8)
[2021-06-16] MEDS: ACCU-CHEK COMFORT CURVE STRIP VI SCH ×4 (06:06→23:58)
[2021-06-16] MEDS: InsuLIN REG 1unit/0.01ml Soln (100units/ml) SC SCH ×4 (06:06→23:58)
[2021-06-16 06:22] LABS: Potassium 4.2 mmol/L (3.5-5.1)
[2021-06-16 06:25] LABS: Albumin 1.4 g/dL (3.4-5.0); BUN/Creatinine Ratio 20.9; Calcium 7.4 mg/dL (8.5-10.1)
[2021-06-16 06:37] LABS: Bilirubin, Total 1.6 mg/dL (0.2-1.0); Total Protein 4.8 g/dL (6.4-8.2)
[2021-06-16 08:27] VITALS: BP 106/54
[2021-06-16] MEDS: levoFLOXacin 500MG 100 ML IV SCH (10:22)
[2021-06-16] MEDS: MORPHINE SULFATE 4 MG/ML SYR/VIAL IV PRN (10:23)
[2021-06-16] MEDS: PANTOPRAZOLE 40 MG/10 ML VIAL INJ IV SCH (10:23)
[2021-06-16] MEDS: SODIUM CHLOR 0.9% PF (SALINE LOCK) 10ML VIAL/SYR IV SCH ×2 (10:28→21:32)
[2021-06-16] MEDS: ENOXAPARIN SOD 40 MG/0.4 ML SYRINGE SC SCH (10:28)
[2021-06-16 12:52] VITALS: BP 113/65
[2021-06-16 16:23] VITALS: BP 119/69
[2021-06-16] MEDS: VANCOMYCIN 1GM/250ML 250 ML IV SCH (18:07)
[2021-06-16] MEDS: MORPHINE SULFATE INJECTION 2 MG/ML SYRG IV PRN (19:56)
[2021-06-16 20:00] VITALS: BP 116/60
[2021-06-16 22:00] VITALS: BP 108/68
[2021-06-16 22:36] LABS: BUN/Creatinine Ratio 18.8; Potassium 3.6 mmol/L (3.5-5.1)
[2021-06-17 05:00] VITALS: BP 118/71
[2021-06-17] MEDS: D5W/SOD CHL 0.45% 1,000 ML IV SCH ×3 (05:16→21:34)
[2021-06-17] MEDS: VANCOMYCIN 1GM/250ML 250 ML IV SCH ×2 (06:33→17:39)
[2021-06-17] MEDS: InsuLIN REG 1unit/0.01ml Soln (100units/ml) SC SCH ×3 (06:34→17:37)
[2021-06-17] MEDS: ACCU-CHEK COMFORT CURVE STRIP VI SCH ×3 (06:35→17:36)
[2021-06-17 08:51] LABS: Hematocrit 28.4 % (41.0-53.0); Hemoglobin 9.9 g/dL (13.5-17.5); Mean Corpuscular Hemoglobin 30.3 pg (28.0-32.0); Mean Corpuscular Hgb Conc. 34.8 g/dL (32.0-36.0); Mean Corpuscular Volume 87.2 fL (80.0-100.0); Red Blood Cells 3.25 10^6/uL (4.5-5.90); Red Cell Distribution Width 16.8 % (11.8-14.3); White Blood Cell 17.9 10^3/uL (4.4-10.8)
[2021-06-17 08:58] LABS: Basophils % (manual) 0 (0.0-2.0); Blast Cells 0; Promyelocytes % 0; Reactive Lymphocytes 0
[2021-06-17 09:00] VITALS: BP 121/60
[2021-06-17] MEDS: ENOXAPARIN SOD 40 MG/0.4 ML SYRINGE SC SCH (09:36)
[2021-06-17] MEDS: levoFLOXacin 500MG 100 ML IV SCH (09:36)
[2021-06-17] MEDS: PANTOPRAZOLE 40 MG/10 ML VIAL INJ IV SCH (09:36)
[2021-06-17 09:55] LABS: Band Neutrophils % (manual) 9; Eosinophils % (manual) 1 (0-7); Lymphocytes % (manual) 7 (10.0-50.0); Metamyelocytes % 2; Monocytes % (manual) 2 (0-12); Myelocytes % 1
[2021-06-17] MEDS: SODIUM CHLOR 0.9% PF (SALINE LOCK) 10ML VIAL/SYR IV SCH ×2 (10:41→21:05)
[2021-06-17 13:00] VITALS: BP 139/69
[2021-06-17] MEDS: MORPHINE SULFATE 4 MG/ML SYR/VIAL IV PRN (15:58)
[2021-06-17 17:00] VITALS: BP 118/60
[2021-06-17 21:59] VITALS: BP 110/66
[2021-06-18] MEDS: MORPHINE SULFATE 4 MG/ML SYR/VIAL IV PRN (04:51)
[2021-06-18] MEDS: VANCOMYCIN 1GM/250ML 250 ML IV SCH (05:49)
[2021-06-18 05:57] VITALS: BP 118/63
[2021-06-18 06:43] LABS: Basophils # (auto) 0.1 10 ^3/uL (0-0.2); Basophils % (auto) 0.5 % (0.0-2.0); Eosinophils # (auto) 0.1 10 ^3/uL (0-0.8); Eosinophils % (auto) 0.9 % (0.0-7.0); Hematocrit 25.6 % (41.0-53.0); Lymphocytes # (auto) 0.7 10 ^3/uL (0.4-5.4); Lymphocytes % (auto) 6.3 % (10.0-50.0); Mean Corpuscular Hemoglobin 30.6 pg (28.0-32.0); Mean Corpuscular Hgb Conc. 35.2 g/dL (32.0-36.0); Mean Corpuscular Volume 87.1 fL (80.0-100.0); Monocytes % (auto) 8.9 % (0.0-12.0); Neutrophils # (auto) 9.9 10 ^3/uL (1.6-8.6); Neutrophils % (auto) 83.4 % (37.0-80.0); Red Blood Cells 2.94 10^6/uL (4.5-5.90); Red Cell Distribution Width 16.7 % (11.8-14.3); White Blood Cell 11.8 10^3/uL (4.4-10.8)
[2021-06-18 07:09] LABS: Albumin 1.4 g/dL (3.4-5.0); BUN/Creatinine Ratio 13.4; Potassium 3.8 mmol/L (3.5-5.1)
[2021-06-18 07:12] LABS: Bilirubin, Total 1.4 mg/dL (0.2-1.0); Total Protein 4.8 g/dL (6.4-8.2)
[2021-06-18 09:00] VITALS: BP 113/65
[2021-06-18] MEDS: PANTOPRAZOLE 40 MG/10 ML VIAL INJ IV SCH (09:59)
[2021-06-18] MEDS: levoFLOXacin 500MG 100 ML IV SCH (09:59)
[2021-06-18] MEDS: ENOXAPARIN SOD 40 MG/0.4 ML SYRINGE SC SCH (09:59)
[2021-06-18] MEDS: D5W/SOD CHL 0.45% 1,000 ML IV SCH (09:59)
[2021-06-18] MEDS: SODIUM CHLOR 0.9% PF (SALINE LOCK) 10ML VIAL/SYR IV SCH (09:59)
[2021-06-18 12:50] VITALS: BP 118/63
[2021-06-18 15:00] VITALS: BP 118/63
== END 2021-06-18 15:45 | DRG 414 ==
LOC: EEVIPCON 15:15 → ER 15:15 → OVERFLOW 18:56 → WEST WING 20:37
PROVIDERS: ADMIT Internal Medicine; ATTEND Internal Medicine
PROC: 0F9930Z Drainage of Common Bile Duct with Drainage Device, Percutaneous Approach (ICD-10-PCS; 2021-06-09)
PROC: BF40ZZZ Ultrasonography of Bile Ducts (ICD-10-PCS; 2021-06-09)
PROC: 0FC93ZZ Extirpation of Matter from Common Bile Duct, Percutaneous Approach (ICD-10-PCS; 2021-06-09)
PROC: 0FJ44ZZ Inspection of Gallbladder, Percutaneous Endoscopic Approach (ICD-10-PCS; 2021-06-11)
PROC: 30233N1 Transfusion of Nonautologous Red Blood Cells into Peripheral Vein, Percutaneous Approach (ICD-10-PCS; 2021-06-11)
PROC: BF10YZZ Fluoroscopy of Bile Ducts using Other Contrast (ICD-10-PCS; 2021-06-11)
PROC: 0FT40ZZ Resection of Gallbladder, Open Approach (ICD-10-PCS; principal; 2021-06-11 07:51)
PROC: 02HV33Z Insertion of Infusion Device into Superior Vena Cava, Percutaneous Approach (ICD-10-PCS; 2021-06-18)
DX: K80.43 Calculus of bile duct with acute cholecystitis with obstruction (principal); K85.90 Acute pancreatitis without necrosis or infection, unspecified; K86.3 Pseudocyst of pancreas; R18.8 Other ascites; K76.89 Other specified diseases of liver; E66.01 Morbid (severe) obesity due to excess calories; I10 Essential (primary) hypertension; K82.A1 Gangrene of gallbladder in cholecystitis; K42.9 Umbilical hernia without obstruction or gangrene; Z20.822 Contact with and (suspected) exposure to COVID-19; R16.1 Splenomegaly, not elsewhere classified; D72.829 Elevated white blood cell count, unspecified; K21.9 Gastro-esophageal reflux disease without esophagitis; N40.0 Benign prostatic hyperplasia without lower urinary tract symptoms; Z83.3 Family history of diabetes mellitus; Z86.711 Personal history of pulmonary embolism; Z68.30 Body mass index [BMI] 30.0-30.9, adult
CPT/HCPCS: 36415; 36569; 47532; 71045; 71046; 74176; 74181; 76000; 76700; 76942; 80048; 80053; 80202; 81001; 82040; 82150; 82247; 82962; 83690; 83735; 84100; 84478; 85007; 85025; 85027; 85610; 85730; 86850; 86900; 86901; 86920; 87070; 87075; 87077; 87186; 87205; 87426; 93005; 96361; 96365; 96375; 97110; 97116; 97163; 97530; 99152; 99153; C1729; C9113; G0378; J0330; J0690; J1100; J1815; J1956; J2250; J2405; J2704; J3490; J7060; J7131; Q9967

== ENCOUNTER 2022-01-12 15:30 | Inpatient (IN) | payer OTHER ==
[~2022-01-12] VITALS: Ht 185.4 cm; Wt 72.0 kg
[~2022-01-12 15:30] MED LIST changes: +ASPI-543 PO; +FERR324T25 PO; +OMEP20TA PO; +PANC1CAP PO; -POTA-220 PO; -SPIR25TA PO; +SPIR50TA5 PO
[2022-01-12 18:53] LABS: Basophils # (auto) 0 10 ^3/uL (0-0.2); Basophils % (auto) 0.7 % (0.0-2.0); Eosinophils # (auto) 0 10 ^3/uL (0-0.8); Eosinophils % (auto) 0.8 % (0.0-7.0); Hematocrit 38.7 % (41.0-53.0); Hemoglobin 12.9 g/dL (13.5-17.5); Lymphocytes # (auto) 1.2 10 ^3/uL (0.4-5.4); Lymphocytes % (auto) 25.7 % (10.0-50.0); Mean Corpuscular Hemoglobin 28.8 pg (28.0-32.0); Mean Corpuscular Hgb Conc. 33.4 g/dL (32.0-36.0); Mean Corpuscular Volume 86.3 fL (80.0-100.0); Monocytes # (auto) 0.5 10 ^3/uL (0-1.3); Monocytes % (auto) 9.9 % (0.0-12.0); Neutrophils # (auto) 2.9 10 ^3/uL (1.6-8.6); Neutrophils % (auto) 62.9 % (37.0-80.0); Nucleated Red Blood Cells % 0.1 %; Red Blood Cells 4.48 10^6/uL (4.5-5.90); Red Cell Distribution Width 16.3 % (11.8-14.3); White Blood Cell 4.6 10^3/uL (4.4-10.8)
[2022-01-12 19:10] LABS: Albumin 3.9 g/dL (3.4-5.0); Calcium 8.9 mg/dL (8.5-10.1); Potassium 4.3 mmol/L (3.5-5.1)
[2022-01-12 19:19] LABS: Bilirubin, Total 3.7 mg/dL (0.2-1.0); Total Protein 7.7 g/dL (6.4-8.2)
[2022-01-12] MEDS ORDERED: ONDANSETRON HCL 4 MG/2 ML VIAL IV ONE (22:00)
[2022-01-12] MEDS ORDERED: SODIUM CHLORIDE 0.9% 1,000 ML IV ONE (22:00)
[2022-01-12] MEDS ORDERED: MORPHINE SULFATE INJ 2 MG/ml SYRG IV PRN (22:15)
[2022-01-12] MEDS ORDERED: NITROGLYCERIN 0.4 MG SL TAB SL PRN (22:15)
[2022-01-12] MEDS ORDERED: MORPHINE SULFATE 4 MG/ML SYR/VIAL IV PRN (22:15)
[2022-01-12] MEDS ORDERED: ONDANSETRON HCL 4 MG/2 ML VIAL IV PRN (22:15)
[2022-01-12] MEDS: D5W/SOD CHL 0.45% 1,000 ML IV SCH (23:33)
[2022-01-13 05:23] VITALS: BP 106/49
[2022-01-13 06:11] LABS: Basophils # (auto) 0 10 ^3/uL (0-0.2); Basophils % (auto) 0.7 % (0.0-2.0); Eosinophils # (auto) 0.1 10 ^3/uL (0-0.8); Eosinophils % (auto) 1.9 % (0.0-7.0); Hematocrit 35.4 % (41.0-53.0); Hemoglobin 12.1 g/dL (13.5-17.5); Lymphocytes % (auto) 34.7 % (10.0-50.0); Mean Corpuscular Hemoglobin 29.2 pg (28.0-32.0); Mean Corpuscular Hgb Conc. 34.3 g/dL (32.0-36.0); Mean Corpuscular Volume 85.3 fL (80.0-100.0); Monocytes # (auto) 0.4 10 ^3/uL (0-1.3); Monocytes % (auto) 13.7 % (0.0-12.0); Neutrophils # (auto) 1.4 10 ^3/uL (1.6-8.6); Nucleated Red Blood Cells % 0.2 %; Red Blood Cells 4.15 10^6/uL (4.5-5.90); Red Cell Distribution Width 16.2 % (11.8-14.3); White Blood Cell 2.9 10^3/uL (4.4-10.8)
[2022-01-13 06:21] LABS: Albumin 3.1 g/dL (3.4-5.0); Calcium 8.3 mg/dL (8.5-10.1); Potassium 3.8 mmol/L (3.5-5.1)
[2022-01-13 06:29] LABS: BUN/Creatinine Ratio 18.8; Bilirubin, Total 3.5 mg/dL (0.2-1.0); Total Protein 6.2 g/dL (6.4-8.2)
[2022-01-13 09:00] VITALS: BP 111/60
[2022-01-13] MEDS: D5W/SOD CHL 0.45% 1,000 ML IV SCH (09:50)
[2022-01-13] MEDS: ENOXAPARIN SOD 40 MG/0.4 ML SYRINGE SC SCH (09:51)
[2022-01-13] MEDS ORDERED: PANTOPRAZOLE 40 MG/10 ML VIAL INJ IV SCH (10:00)
[2022-01-13] MEDS ORDERED: OMNIPAQUE ORAL SOLN 500ml 12mg/ml PO ONE (11:07)
[2022-01-13 13:00] VITALS: BP 101/46
[2022-01-13] MEDS ORDERED: IOHEXOL 300 MG/ML 100ML BOTTLE IJ ONE (13:27)
[2022-01-13 17:07] VITALS: BP 137/65
[2022-01-13] MEDS ORDERED: TAMSULOSIN HYDROCHLORIDE 0.4 MG CAP PO SCH ×2 (19:00)
[2022-01-13 22:00] VITALS: BP 145/75
[2022-01-13] MEDS ORDERED: HYDROcodone-ACET 10/325MG TAB PO PRN (22:15)
[2022-01-14 05:00] VITALS: BP 127/70
[2022-01-14 05:18] LABS: Albumin 3.4 g/dL (3.4-5.0); Calcium 8.4 mg/dL (8.5-10.1)
[2022-01-14 05:28] LABS: BUN/Creatinine Ratio 13.3; Bilirubin, Total 4.4 mg/dL (0.2-1.0); Total Protein 7.2 g/dL (6.4-8.2)
[2022-01-14 08:00] VITALS: BP 135/76
[2022-01-14 09:00] VITALS: BP 135/76
[2022-01-14] MEDS ORDERED: POTASSIUM CHL 20 Meq TABLET PO SCH (10:00)
[2022-01-14] MEDS ORDERED: FUROSEMIDE 40 MG TAB PO SCH (10:00)
[2022-01-14] MEDS: ENOXAPARIN SOD 40 MG/0.4 ML SYRINGE SC SCH (10:36)
[2022-01-14 13:00] VITALS: BP 136/75
[2022-01-14 16:08] VITALS: BP 130/68
== END 2022-01-14 18:21 | DRG 442 ==
LOC: EEVIPCON 15:30 → ER 15:30 → OVERFLOW 22:14 → WEST WING 01-13 02:02
PROVIDERS: ADMIT Internal Medicine; ATTEND Internal Medicine
DX: K72.90 Hepatic failure, unspecified without coma (principal); K86.1 Other chronic pancreatitis; R18.8 Other ascites; K86.2 Cyst of pancreas; K86.3 Pseudocyst of pancreas; I11.9 Hypertensive heart disease without heart failure; N40.0 Benign prostatic hyperplasia without lower urinary tract symptoms; Z20.822 Contact with and (suspected) exposure to COVID-19
CPT/HCPCS: 36415; 71046; 74177; 80053; 82150; 83690; 85025; 87081; 96361; 96374; C9113; G0378; J2405

== ENCOUNTER 2022-04-14 06:29 | Inpatient (IN) | payer OTHER ==
[~2022-04-14] VITALS: Ht 172.7 cm; Wt 82.8 kg
[2022-04-14] MEDS ORDERED: CIPROFLOXACIN 400MG/200ML 200 ML IV ONE (08:07)
[2022-04-14] MEDS ORDERED: MIDAZOLAM HCL 2MG/2ML 2ml VIAL (1mg/ml) ONE (08:38)
[2022-04-14] MEDS ORDERED: fentaNYL CITRATE 100 MCG/2 ML VL ONE (08:38)
[2022-04-14] MEDS ORDERED: DexAMETHasone SOD PHOS 10MG/1ML VIAL INJ ONE (08:39)
[2022-04-14] MEDS ORDERED: PROPOFOL 10 MG/ML 20 ML IV ONE (08:39)
[2022-04-14] MEDS ORDERED: SODIUM CHLORIDE LOCK 10 ML ONE (08:39)
[2022-04-14] MEDS ORDERED: ONDANSETRON HCL 4 MG/2 ML VIAL ONE (08:39)
[2022-04-14] MEDS ORDERED: MORPHINE SULFATE 4 MG/ML SYR/VIAL IV PRN (09:30)
[2022-04-14] MEDS ORDERED: HYDROmorphone HCL 2 MG/ML VL/or syr IV PRN ×2 (09:30)
[2022-04-14] MEDS ORDERED: METOCLOPRAMIDE HCL 5MG/ml INJ 2ml VIAL IV PRN (09:30)
[2022-04-14] MEDS ORDERED: GENTAMICIN SULF 80 MG/2 ML VIAL ONE ×2 (09:49→09:50)
[2022-04-14] MEDS ORDERED: NITROGLYCERIN 0.4 MG SL TAB SL PRN (10:30)
[2022-04-14] MEDS ORDERED: MORPHINE SULFATE INJ 2 MG/ml SYRG IV PRN (10:30)
[2022-04-14] MEDS ORDERED: HYDROcodone-ACET 10/325MG TAB PO PRN (15:00)
[2022-04-14] MEDS ORDERED: ONDANSETRON HCL 4 MG/2 ML VIAL IV PRN (15:00)
[2022-04-14] MEDS ORDERED: ROCURONIUM 10MG/ML 10ML VIAL IV ONE (15:28)
[2022-04-14] MEDS ORDERED: SUCCINYLCHOLINE CHLORIDE 20 MG/ML 10ML VIAL IV ONE (15:28)
[2022-04-14 15:34] VITALS: BP 124/80
[2022-04-14 16:45] LABS: Basophils # (auto) 0 10 ^3/uL (0-0.2); Basophils % (auto) 0.7 % (0.0-2.0); Eosinophils # (auto) 0.1 10 ^3/uL (0-0.8); Eosinophils % (auto) 1.5 % (0.0-7.0); Hematocrit 33.9 % (41.0-53.0); Hemoglobin 11.8 g/dL (13.5-17.5); Lymphocytes % (auto) 20.2 % (10.0-50.0); Mean Corpuscular Hemoglobin 29.8 pg (28.0-32.0); Mean Corpuscular Hgb Conc. 34.7 g/dL (32.0-36.0); Monocytes # (auto) 0.5 10 ^3/uL (0-1.3); Monocytes % (auto) 9.9 % (0.0-12.0); Neutrophils # (auto) 3.4 10 ^3/uL (1.6-8.6); Neutrophils % (auto) 67.7 % (37.0-80.0); Nucleated Red Blood Cells % 0.2 %; Red Blood Cells 3.94 10^6/uL (4.5-5.90); Red Cell Distribution Width 16.6 % (11.8-14.3)
[2022-04-14 17:04] LABS: Albumin 2.7 g/dL (3.4-5.0); BUN/Creatinine Ratio 14.1; Calcium 7.9 mg/dL (8.5-10.1); Potassium 4.2 mmol/L (3.5-5.1)
[2022-04-14 17:06] LABS: Bilirubin, Total 1.8 mg/dL (0.2-1.0); Total Protein 5.9 g/dL (6.4-8.2)
[2022-04-14] MEDS: PANCREATIC ENZYMES 4200 UNIT CAP PO SCH (18:00)
[2022-04-14 22:00] VITALS: BP 111/64
[2022-04-14] MEDS: CIPROFLOXACIN HCL 500 MG TAB PO SCH (22:17)
[2022-04-15 05:00] VITALS: BP 133/58
[2022-04-15 08:00] VITALS: BP 119/63
[2022-04-15] MEDS: ENOXAPARIN SOD 40 MG/0.4 ML SYRINGE SC SCH (09:34)
[2022-04-15] MEDS: FUROSEMIDE 40 MG TAB PO SCH (09:34)
[2022-04-15] MEDS: CIPROFLOXACIN HCL 500 MG TAB PO SCH ×2 (09:35→21:13)
[2022-04-15] MEDS: POTASSIUM CHL 10 Meq TABLET PO SCH (09:35)
[2022-04-15] MEDS: PANTOPRAZOLE 40 MG TAB PO SCH (09:35)
[2022-04-15] MEDS: PANCREATIC ENZYMES 4200 UNIT CAP PO SCH ×3 (09:47→17:59)
[2022-04-15 13:00] VITALS: BP 99/55
[2022-04-15 16:54] VITALS: BP 108/57
[2022-04-15 22:00] VITALS: BP 123/70
[2022-04-16 05:00] VITALS: BP 127/67
[2022-04-16] MEDS: PANCREATIC ENZYMES 4200 UNIT CAP PO SCH ×2 (08:00→12:30)
[2022-04-16 09:00] VITALS: BP 118/61
[2022-04-16] MEDS: PANTOPRAZOLE 40 MG TAB PO SCH (10:24)
[2022-04-16] MEDS: POTASSIUM CHL 10 Meq TABLET PO SCH (10:24)
[2022-04-16] MEDS: FUROSEMIDE 40 MG TAB PO SCH (10:25)
[2022-04-16] MEDS: CIPROFLOXACIN HCL 500 MG TAB PO SCH (10:25)
[2022-04-16] MEDS: ENOXAPARIN SOD 40 MG/0.4 ML SYRINGE SC SCH (10:25)
[2022-04-16 13:34] VITALS: BP 131/60
== END 2022-04-16 15:08 | DRG 713 ==
LOC: SUR 06:29 → OVERFLOW 10:21 → WEST WING 14:19
PROVIDERS: ADMIT Urology; ATTEND Internal Medicine
PROC: 0VT08ZZ Resection of Prostate, Via Natural or Artificial Opening Endoscopic (ICD-10-PCS; principal; 2022-04-14 08:56)
DX: N40.1 Benign prostatic hyperplasia with lower urinary tract symptoms (principal); N13.8 Other obstructive and reflux uropathy; N39.0 Urinary tract infection, site not specified; I10 Essential (primary) hypertension; Z90.49 Acquired absence of other specified parts of digestive tract; Z88.8 Allergy status to other drugs, medicaments and biological substances
CPT/HCPCS: 36415; 71045; 80053; 85025; G0378; J0330; J1100; J2250; J2405; J2704